=== PATIENT | male | born 1955 | race Caucasian/White ===

== ENCOUNTER 2017-09-25 00:18 | Outpatient (CLI) | payer BC, SELFPAY ==
--- NOTE | 2017-09-25 10:35 | DI.REPORT_ITS ---
SYMPTOM/DIAGNOSIS: RT SHOULDER PAIN, S46.011A, RT ROTATOR CUFF TEAR. MRI RIGHT SHOULDER: Routine noncontrast examination was performed. This study is limited due to patient positioning. The patient should return at their convenience and no additional expense for a repeat examination of the MRI of the right shoulder. There is a large tear of the supraspinatus tendon with retraction to the level of the glenohumeral joint. There also appears to be a partial tear of the infraspinatus tendon. The subscapularis and teres minor tendons are intact. The biceps tendon has a normal appearance and location. The glenoid labrum is unremarkable on this noncontrast examination. The rotator cuff muscles show normal signal and size. No significant muscular fatty atrophy is appreciated. There is normal marrow signal. No findings to suggest an occult fracture or avascular necrosis is identified. No evidence of a soft tissue mass is seen. No focal fluid collection is present. IMPRESSION: Complete tear of the supraspinatus tendon with retraction to the level of the glenohumeral joint. 2. Findings suggestive of a partial tear of the infraspinatus tendon
== END 2017-09-25 00:19 ==
PROVIDERS: PCP Family Medicine; Visit Provider Student in an Organized Health Care Education/Training Program
DX: M75.121 Complete rotator cuff tear or rupture of right shoulder, not specified as traumatic (principal); S46.011A Strain of muscle(s) and tendon(s) of the rotator cuff of right shoulder, initial encounter
CPT/HCPCS: 73221

== ENCOUNTER 2017-10-10 00:41 | Outpatient (CLI) | payer BC, SELFPAY ==
--- NOTE | 2017-10-10 08:35 | DI.REPORT_ITS ---
SYMPTOMS/DIAGNOSIS: F/U MRI 09/25/17, REPEAT EXAM, RT SHOULDER PAIN, ROTATOR CUFF TEAR, S46.O11A RIGHT SHOULDER MRI: Today's examination was obtained to complete examination attempted on 09/25/17 which had loss of signal over portions of the imaging field as a result of patient positioning. On today's examination there is note made of hypertrophic degenerative change of the acromioclavicular and glenohumeral joints. The glenoid labrum is effaced particularly anteriorly and inferiorly but also superiorly. There is distortion of the rotator cuff anatomy with an apparent large supraspinatus tendon tear but some intact fibers of supraspinatus appear to present anteriorly. Infraspinatus tendon also appears partially torn. There is a large bare area of the humeral head measuring up to about 2 cm in diameter on sagittal views. Subscapularis tendon shows abnormal signal but no gross tear or retraction. Teres major appears intact. Biceps anchor and tendon are poorly visualized, biceps tear not excluded and biceps tendon appears of markedly decreased diameter as visualized in the bicipital groove which may also indicate a tear. CONCLUSION: Distorted rotator cuff anatomy with splaying of torn supraspinatus and infraspinatus tendons with some intact portions of supraspinatus and infraspinatus tendons. The humeral head is approximated to the inferior aspect of the acromion. Significant degenerative change, labral abnormalities and possible biceps tendon tear are noted as described above.
== END 2017-10-10 00:42 ==
PROVIDERS: PCP Family Medicine; Visit Provider Student in an Organized Health Care Education/Training Program
DX: M25.511 Pain in right shoulder (principal); M75.81 Other shoulder lesions, right shoulder; M19.011 Primary osteoarthritis, right shoulder; M75.101 Unspecified rotator cuff tear or rupture of right shoulder, not specified as traumatic
CPT/HCPCS: 73221

== ENCOUNTER 2017-12-05 07:47 | Outpatient (CLI) | payer BC, SELFPAY ==
[2017-12-05 10:25] LABS: HCT 43.5 % (40.0-50.0); HGB 15.2 g/dL (13.5-17.5); Mean Corp. HGB Concentration 34.9 g/dL (32.0-36.0); Mean Corpuscular Hemoglobin 30.5 pg (27.0-33.0); Mean Corpuscular Volume 87.2 fL (80-95); Mean Platelet Volume 9.8 fL (8.0-11.0); Platelet Count 201 x1000/uL (130-400); RBC 4.99 m/cumm (4.50-6.00); RBC Distribution Width 12.3 % (11.8-14.1); White Blood Cell Count 7.51 k/cumm (4.4-10.8)
[2017-12-05 12:39] LABS: Anion Gap 11.2 mmol/L (3-11); BUN 13 mg/dL (7-18); CO2 27.8 mmol/L (21.0-32.0); CREATININE 0.88 mg/dL (0.70-1.30); Calcium 9.2 mg/dL (8.5-10.1); Chloride 103 mmol/L (98-107); Glucose 97 mg/dL (70-100); Potassium 3.7 mmol/L (3.5-5.1); Sodium 142 mmol/L (136-145)
--- NOTE | 2017-12-05 15:20 | W.PM.HP.N ---
PFSH Family History Mother Heart disease Father Arthritis Brother No problems noted. Sister No problems noted. Sister No problems noted. Other Hyperlipidemia Hypertension Obesity Medical History Allergic rhinitis Hyperlipidemia Hypertension Jaw fracture Osteoarthritis Right shoulder pain Subclinical hypothyroidism Social History marital status: lives independently: Yes Smoking/Tobacco Use Status: Never alcohol intake: current details: couple drinks/night substance use type: does not use Surgical History Appendectomy Colonoscopy - IV Sedation Vasectomy Meds Home Medications Medication Instructions Recorded Confirmed Type aspirin [Aspir 81] 81 mg PO HS tab-cap 04/26/12 12/05/17 History cetirizine 10 mg PO HS tab-cap 04/26/12 12/05/17 History grape seed extract 500 mg PO HS 12/05/17 12/05/17 History hydrochlorothiazide 12.5 mg PO HS 12/05/17 12/05/17 History levothyroxine 25 mcg PO HS 12/05/17 12/05/17 History rosuvastatin 10 mg PO HS 12/05/17 12/05/17 History Allergies Allergy/AdvReac Type Severity Reaction Status Date / Time enviromental allergies Allergy Mild runny nose Uncoded 12/05/17 08:57 Results Labs : 12/05/17 09:48 12/05/17 09:48 Laboratory Results - last 24 hr 12/05/17 12/05/17 12/05/17 09:48 09:48 09:48 WBC 7.51 RBC 4.99 Hgb 15.2 Hct 43.5 MCV 87.2 MCH 30.5 MCHC 34.9 RDW 12.3 Plt Count 201 MPV 9.8 Sodium 142 Potassium 3.7 Chloride 103 Carbon Dioxide 27.8 Anion Gap 11.2 H BUN 13 Creatinine 0.88 Estimated GFR/1.73 m2 >= 60.00 Glucose 97 Calcium 9.2 Patient ABO/Rh O Positive Antibody Screen Negative
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
== END 2017-12-05 08:07 ==
PROVIDERS: PCP Family Medicine; Visit Provider Student in an Organized Health Care Education/Training Program
DX: M25.552 Pain in left hip (principal); M16.12 Unilateral primary osteoarthritis, left hip; Z01.818 Encounter for other preprocedural examination
CPT/HCPCS: 80048; 85027; 86850; 86900; 86901

== ENCOUNTER 2017-12-05 10:26 | Outpatient (CLI) | payer BC, SELFPAY ==
--- NOTE | 2017-12-05 10:21 | DI.RAD_ITS ---
SYMPTOM/DIAGNOSIS: LT HIP PAIN LEFT HIP: An AP image includes the left hip and proximal and mid femur. Severe degenerative changes involving the hip are identified with joint space narrowing , sclerosis and periarticular hypertrophic spurring.
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
--- NOTE | 2017-12-05 14:24 | PDOC.CMPRO ---
- If Service Date Differs Date of service: 12/05/17 Time of Service: 14:24 Care Management Progress Note DSU requested CM meet with Man prior to his surgery next week. Man will be having a total left hip with Dr. Brady on 12/11/2017. He resides with his Caron in [facility]. Man reports that he has four steps, then a ramp, and an additional three steps to get into his home. There are two alternative entrances to his home but Man believes this will be the most feasable and safe while ambulating with a walker. Asher has a walker at home so will not be needing one on discharge. Man reports that his , Caron and adult son, Danilo, will be supporting him in his recovery. Man will transport via private vehicle with his , Caron or son, Danilo. CM will offer support to patient, family, and care team regarding discharge planning and disposition when patient comes to the MS floor following surgery.
--- NOTE | 2017-12-05 14:47 | CMPROGNOTE_ITS ---
- If Service Date Differs Date of service: 12/05/17 Time of Service: 14:24 Care Management Progress Note DSU requested CM meet with Man prior to his surgery next week. Man will be having a total left hip with Dr. Brady on 12/11/2017. He resides with his Caron in [facility]. Man reports that he has four steps, then a ramp , and an additional three steps to get into his home. There are two alternative entrances to his home but Man believes this will be the most feasable and safe while ambulating with a walker. Asher has a walker at home so will not be needing one on discharge. Man reports that his , Caron and adult son, Danilo, will be supporting him in his recovery. Man will transport via private vehicle with his , Caron or son, Danilo. CM will offer support to patient, family, and care team regarding discharge planning and disposition when patient comes to the MS floor following surgery.
== END 2017-12-05 10:46 ==
PROVIDERS: PCP Family Medicine; Visit Provider Physician Assistant
DX: M25.552 Pain in left hip (principal); M16.12 Unilateral primary osteoarthritis, left hip
CPT/HCPCS: 73501

== ENCOUNTER 2017-12-11 07:14 | Inpatient (IN) | payer BC, SELFPAY ==
[2017-12-05 09:00] VITALS: BP 162/73; PULSE 52; RESP 17; TEMP 37.1; O2SAT 96
--- NOTE | 2017-12-05 14:55 | PDOC.CMPRO ---
- If Service Date Differs Date of service: 12/05/17 Time of Service: 14:55 Care Management Progress Note DSU requested CM meet with Man prior to his surgery next week. Man will be having a total left hip with Dr. Brady on 12/11/2017. He resides with his Caron in [facility]. Man reports that he has four steps, then a ramp, and an additional three steps to get into his home. There are two alternative entrances to his home but Man believes this will be the most feasable and safe while ambulating with a walker. Asher has a walker at home so will not be needing one on discharge. Man reports that his , Caron and adult son, Danilo, will be supporting him in his recovery. Man will transport via private vehicle with his , Caron or son, Danilo. CM will offer support to patient, family, and care team regarding discharge planning and disposition when patient comes to the MS floor following surgery.
[2017-12-11] VITALS (16 sets, daily range): BP systolic 121–159; BP diastolic 57–98; PULSE 55–68; RESP 11–18; TEMP 36.3–37; O2SAT 93–96
[2017-12-11] MEDS: oxyCODONE-CR 10 MG TABCR PO (06:38)
[2017-12-11] MEDS: Celecoxib 200 MG CAP 400 MG PO (06:38)
[2017-12-11] MEDS: Acetaminophen 500 MG TAB 1000 MG PO ×2 (06:38→14:32)
[2017-12-11] MEDS: Lactated Ringers 1,000 ML 80 ML IV ×2 (06:40→09:12)
[2017-12-11] MEDS: Ketorolac 30 MG/ML VIAL (09:30)
[2017-12-11] MEDS: Bupivacaine 0.25% Pres-Free 30 ML VIAL (09:30)
--- NOTE | 2017-12-11 10:14 | DI.RAD_ITS ---
SYMPTOM/DIAGNOSIS: OA LT HIP, CHECK HARDWARE C-ARM LEFT HIP IN OR: Fluoroscopy Time: 30.6 seconds Fluoroscopy was provided in the OR for Dr. Brady. Hard copy images show placement of a left total hip prosthesis. Please see procedure note for details. PORTABLE AP PELVIS: The patient is status post placement of a left hip prosthesis. The components appear well aligned. There is a small amount of residual post surgical air in the soft tissues.
--- NOTE | 2017-12-11 14:28 | PT.INIE ---
Date of service: 12/11/17 Time of Service: 14:28 PT Notes Inpatient Physical Therapy Evaluation Date: 12/11/17 Referring Doctor: Kiko Brady PT Orders: PT CONSULT: s/p left anterior YEHUDA Precautions: WBAT L LE Patient Profile/Admitting Diagnosis: Pt is a 62yr old male s/p left anterior total hip arthroplasty by Dr. Brady 12/11/17 PMHX: osteoarthritis left hip, right rotator cuff repair, hypertension, hyperlipidemia, allergic rhinitis, jaw fracture, hypothyroidism, appendectomy, colonoscopy, vasectomy Social History/Home Situation: Lives with in a house, 4 steps with railing and ramp to enter, baseline mobility independent gait with no device, independent with ADLS Equipment Owned/DME: FWW Subjective: Pt lying on gurney bed, alert, agreeable to PT Consult. in room observing session. Pt states he wants to be able to go home today. Objective: General Observation: IV r UE, renee catheter Mental Status: A& O x3 Pain: no c/o pain Bed Mobility/Transfers: Supine-sit: independent Sit-stand: independent with FWW Stand-sit: independent Sit-supine: independent Gait: supervision with FWW [id number] WBAT L LE, step through gait pattern with good balance and stability with use of FWW. Stairs: pt verbally instructed in step sequence with railing. Pt states he has been practicing stair sequence at home prior to admission and feels comfortable with performing steps. Pt has handout in pre-op packet with instructions for stair training as well. Therex: Pt has issued home exercise program, initiated ankle pumps, quad sets and glute sets x 20 reps Balance: Static Sitting: normal Dynamic Sitting: normal Static Standing: fair Dynamic Standing: fair Special Tests: Mobility Limitations Standardized Measure [facility] AM-PAC 6 clicks Basic Mobility Inpatient Short Form: Raw Score: 18 Standardized Score: 43.63 CMS Score: 46.58% CMS Modifier: CK Informed Consent/Education: Patient instructed in purpose of PT consult and plan of care. Assessment: Pt is a 62yr old male s/p left anterior total hip arthroplasty by Dr. Brady 12/11/17 in setting of osteoarthritis left hip, right rotator cuff repair. Patient presents with the following impairment level findings: weakness left hip post operatively, decreased static and dynamic standing balance requiring use of FWW. Pt was able to perform transfers independently and gait with FWW with supervision only 100ft x2. He has 4 steps at home that he has practiced prior to surgery and was able to verbalize step sequence at time of evaluation. Pt wants to discharge to home today. Pt is stable to discharge from mobility perspective when medically cleared. If he is admitted overnight, will review stair training in am then discharge PT. Impairments are contributing to the following functional limitations: AMPAC score CMS Score: 46.58% Patient is assessed as a Low 68246 complexity based on the following: History: see above Examination: see above Presentation: stable Decision Making: AMPAC score CMS Score: 46.58% Goals: Goals X2 visits 1. up/down 4 steps with railing, WBAT supervision Plan of Care/Treatment Plan: 1-2x/day x 2 visits Plan of care has been reviewed with the VALVE LAPPER providing the service under Physical Therapy direction. Initiate Physical Therapy intervention for strengthening, bed mobility, transfers, gait, stairs, balance training, use of assistive device. DISCHARGE RECOMMENDATIONS: Home, pt has FWW TREATMENT CODE/TIME: 25 min IE 1425 G Codes in the area mobility of walking and moving around: current status [id number] []; projected status GP [id number]-[]. Discharge status (if discharging) GP [id number] CK based on AMPAC score CMS Score: 46.58% Cathleen Ramirez PT
--- NOTE | 2017-12-11 14:41 | IN_ITS ---
Date of service: 12/11/17 Time of Service: 14:28 PT Notes Inpatient Physical Therapy Evaluation Date: 12/11/17 Referring Doctor: Kiko Brady PT Orders: PT CONSULT: s/p left anterior YEHUDA Precautions: WBAT L LE Patient Profile/Admitting Diagnosis: Pt is a 62yr old male s/p left anterior total hip arthroplasty by Dr. Brady 12/11/17 PMHX: osteoarthritis left hip, right rotator cuff repair, hypertension, hyperlipidemia, allergic rhinitis, jaw fracture, hypothyroidism, appendectomy, colonoscopy, vasectomy Social History/Home Situation: Lives with in a house, 4 steps with railing and ramp to enter, baseline mobility independent gait with no device, independent with ADLS Equipment Owned/DME: FWW Subjective: Pt lying on gurney bed, alert, agreeable to PT Consult. in room observing session. Pt states he wants to be able to go home today. Objective: General Observation: IV r UE, renee catheter Mental Status: A& O x3 Pain: no c/o pain Bed Mobility/Transfers: Supine-sit: independent Sit-stand: independent with FWW Stand-sit: independent Sit-supine: independent Gait: supervision with FWW [id number] WBAT L LE, step through gait pattern with good balance and stability with use of FWW. Stairs: pt verbally instructed in step sequence with railing. Pt states he has been practicing stair sequence at home prior to admission and feels comfortable with performing steps. Pt has handout in pre-op packet with instructions for stair training as well. Therex: Pt has issued home exercise program, initiated ankle pumps, quad sets and glute sets x 20 reps Balance: Static Sitting: normal Dynamic Sitting: normal Static Standing: fair Dynamic Standing: fair Special Tests: Mobility Limitations Standardized Measure [facility] AM-PAC 6 clicks Basic Mobility Inpatient Short Form: Raw Score: 18 Standardized Score: 43.63 CMS Score: 46.58% CMS Modifier: CK Informed Consent/Education: Patient instructed in purpose of PT consult and plan of care. Assessment: Pt is a 62yr old male s/p left anterior total hip arthroplasty by Dr. Brady 12/11/17 in setting of osteoarthritis left hip, right rotator cuff repair. Patient presents with the following impairment level findings: weakness left hip post operatively, decreased static and dynamic standing balance requiring use of FWW. Pt was able to perform transfers independently and gait with FWW with supervision only 100ft x2. He has 4 steps at home that he has practiced prior to surgery and was able to verbalize step sequence at time of evaluation. Pt wants to discharge to home today. Pt is stable to discharge from mobility perspective when medically cleared. If he is admitted overnight, will review stair training in am then discharge PT. Impairments are contributing to the following functional limitations: AMPAC score CMS Score: 46.58% Patient is assessed as a Low 11447 complexity based on the following: History: see above Examination: see above Presentation: stable Decision Making: AMPAC score CMS Score: 46.58% Goals: Goals X2 visits 1. up/down 4 steps with railing, WBAT supervision Plan of Care/Treatment Plan: 1-2x/day x 2 visits Plan of care has been reviewed with the CRATE MAKER providing the service under Physical Therapy direction. Initiate Physical Therapy intervention for strengthening, bed mobility, transfers, gait, stairs, balance training, use of assistive device. DISCHARGE RECOMMENDATIONS: Home, pt has FWW TREATMENT CODE/TIME: 25 min IE 1425 G Codes in the area mobility of walking and moving around: current status [id number] []; projected status GP G8979-[]. Discharge status (if discharging) GP G8980 CK based on AMPAC score CMS Score: 46.58% Cathleen Ramirez PT
--- NOTE | 2017-12-11 15:38 | W.PM.DS.N ---
Date of service: 12/11/17 Time of Service: 15:39 DS: Diagnosis Discharge Diagnosis (1) Primary osteoarthritis of left hip: Status: Acute Discharge Plan Disposition Patient Disposition: HOME Condition: Good Discharge Details Reason For Visit: LEFT HIP DJD Admit Date/Time: 12/11/17 07:14 Admit Provider: Kiko Brady Attending Provider: Kiko Brady [facility] Hospital Course: Patient was admitted to the medical/surgical floor following the procedure. It was tolerated well without any notable medical, surgical, or anesthetic complications. Mobilization began postoperatively. The renee catheter was removed and voiding spontaneously. Vitals were stable. Physical therapy worked with the patient and was cleared for discharge home. No acute medical issues. Home Meds and New Rx's Prescriptions: New aspirin 81 mg Tablet,Delayed Release (Dr/Ec) 81 mg PO BID Qty: 80 RF: 0 docusate sodium [Colace] 100 mg Capsule 100 mg PO BID PRN PRN (Reason: Constipation) Qty: 0 RF: 0 polyethylene glycol 3350 17 gram Powder In Packet 17 g PO BID PRN PRN (Reason: Constipation) Qty: 0 RF: 0 pantoprazole 40 mg Tablet,Delayed Release (Dr/Ec) 40 mg PO DAILY@0730 Qty: 30 RF: 0 celecoxib 200 mg capsule 200 mg PO BID PRN (Reason: pain) Qty: 60 RF: 1 acetaminophen 500 mg capsule 1,000 mg PO Q8H PRN (Reason: pain) Qty: 90 RF: 0 oxycodone 5 mg tablet 5 mg PO Q4H Qty: 10 RF: 0 Continue aspirin [Aspir-81] 81 MG tablet,delayed release (DR/EC) 81 mg PO HS RF: 0 cetirizine 10 MG tablet,chewable 10 mg PO HS RF: 0 grape seed extract 50 mg Tablet 500 mg PO HS RF: 0 rosuvastatin 10 mg Tablet 10 mg PO HS RF: 0 Changed levothyroxine 25 MCG tablet 25 mcg PO DAILY Qty: 0 RF: 0 hydrochlorothiazide 12.5 mg tablet 12.5 mg PO DAILY Qty: 0 RF: 0 Discharge Instructions Additional Instructions: Dr. Brady?s Total Hip Discharge Instructions Activity: The most important activity is to walk. You should try to take short walks a few times a day. You have no restrictions on movement or positioning, but do not try to force what you do. You will find some stiffness and weakness with hip flexion (lifting your knee). Do not try to strengthen this too early, continue to practice walking and stairs and this will come. - Outpatient physical therapy can be helpful to help return you to a normal gait and improve your flexibility and strength. This can start around 2 weeks. For some patients, it?s not necessary. Usually this is determined at the time of discharge or at the first post-operative visit. - You should wear the DAMIÁN hose on both legs for 4 weeks. Dressing: Keep the surgical dressing in place for at least one week. After the first week it may be removed and replace with light gauze and tape or nothing. It may get wet after 3 days but avoid soaking the dressing. If it gets wet, just lightly pat dry. It is important to always keep some gauze between skin folds, especially when you are sitting. Spend some time with the wound exposed when you are lying flat as the incision does wrinkle onto itself. Medications: - You should take Tylenol and an anti-inflammatory Celebrex as your primary pain control medications - You have been prescribed a stronger pain medication oxycodone for breakthrough pain, take as needed as prescribed. - You have also been prescribed a stomach acid reduction agent Pantoprozole to help reduce stomach acid and reflux. - You will be taking aspirin 81mg twice a day for DVT prevention unless instructed otherwise. - If you have constipation you should take Colace or Miralax (both dxyi-bir-fokngna). It takes most people 3-4 days to have a bowel movement. Follow-up: 2 weeks Activity:: Activity as Tolerated Equipment/Supplies:: Walker Diet:: As Tolerated Discharge Orders Discharge Orders: Discharge Order (Routine); Ordered 12/11/17 Ordered By: Kiko Brady DS: Data Vitals/I&O Vitals and I&O: Vital Signs Temperature 36.4 C L 12/11/17 14:39 Pulse 61 12/11/17 14:39 Pulse Rhythm Regular 12/11/17 06:22 Respiratory Rate 15 12/11/17 14:39 Respiratory Effort 12/11/17 06:22 Respiratory Depth Normal 12/11/17 06:22 Respiratory Pattern Normal 10/23/18 06:22 Blood Pressure 135/98 H 12/11/17 14:39 Pulse Oximetry 94 L 12/11/17 14:39 Respiratory End-tidal CO2 27 12/11/17 10:33 Oxygen Delivery Method Room Air 12/11/17 14:39 Oxygen Flow Rate 0 12/11/17 06:22 Pain Level 0 12/11/17 14:39 Comment 12/11/17 06:22 Intake & Output 12/10/17 12/11/17 12/11/17 23:59 11:59 23:59 Intake Total 1370 / 1370 700 / 700 Output Total 550 / 550 1250 / 1250 Balance 820 / 820 -550 / -550 Weight 100 kg Intake: IV 1370 / 1370 700 / 700 Output: Urine 150 / 150 1250 / 1250 Estimated Blood Loss 400 / 400 Other: Urine Color Yellow Pale Yellow Urine Appearance Clear Clear Comment patient being discharged to home, verbal order to van renee was given to this nurse by Dr Brady. patient will wait to spontaneously void before leaving Emesis Description None None
--- NOTE | 2017-12-11 15:50 | W.PM.OP ---
Date of service: 12/11/17 Time of Service: 15:50 Operative Note DATE OF PROCEDURE: 12/11/17 PRE-OP DIAGNOSIS: Left Hip Osteoarthritis POST-OP DIAGNOSIS: same PROCEDURE: Left Anterior Total Hip Arthroplasty SURGEON: Kiko Brady PLANNING COORDINATOR: Michael Schuler ANESTHESIA: spinal ESTIMATED BLOOD LOSS: 400 PATHOLOGY: none sent COMPLICATIONS: None Patient was transported to: PACU Patient's condition: stable Implants: 1. Depuy Calamus Acetabular Component, 52 mm 2. Depuy Acetabular Liner, 52 x 36 mm, +4 lateralized 3. Depuy Corail coxa vara femoral Stem, Size 14 4. Depuy Altrx Ceramic Femoral Head, Size 36+1.5 mm Indications: I have seen Man in clinic for symptoms of hip arthritis, confirmed with radiographic findings. Brando has exhausted nonoperative methods and was having significant limitations in daily function and desired better function and less pain. I discussed the technical details of a hip replacement. I explained the risks of the procedure to include, but not limited to, bleeding, infection, pain, stiffness, fracture, damage to nerves and vessels, damage to muscles and tendons, loosening, instability, leg length inequality, need for repeat procedure, blood clot and cardiopulmonary demise. Despite these risks, Brando elected to proceed. Findings: There was significant signs of arthritis throughout the hip. There were large neck osteophytes and large floor osteophyte of the acetabulum. Inferior osteophytes of the acetabulum were removed. Procedure Description: Brando was greeted in the preoperative holding area where the correct side was identified and marked. The consent was reviewed with the patient and signed. The history and physical was updated. All questions were answered. Brando was taken back to the operating room. A spinal anesthestic was then administered. The patient was placed into the supine position on the operating room table. The patient was then positioned onto the ARCH table. Both feet were wrapped with Webrill cotton wrap along with Coban. The feet were placed in specialized boots for the ARCH table, well seated within the boot and secured. SCDs were applied. The patient was then slid down onto a peroneal post and the nonoperative leg was secured in a leg salmeron attached to the table. The operative side was placed into the ARCH table attachment and bed height and positioning was secured. A preoperative AP pelvis was obtained to serve as a reference for determining leg lengths. Prophylactic antibiotics in the form of cefazolin were administered. 1g of Tranxemic Acid was given intravenously within 30 minutes of incision. The left leg was then prepped with Chloraprep and draped in a standard fashion with a large shower-curtain type drape with Iodine impregnated skin protection. A timeout to confirm correct identity, side and site, procedure, allergies, anesthesia, and medical concerns was performed. An obliquely oriented incision was made starting lateral to the ASIS and running distal over the Tensor Fascia Aruna (TFL) muscle belly toward the fibular head, approximately 10cm. The skin and soft tissue was dissected sharply, through Maciel?s fascia, and to the fascia of the TFL. With the fascia and superior border of the IT band identified, the fascia was incised with a new knife just above any perforators from the IT band. The TFL muscle belly was bluntly dissected away from the fascia and moved laterally. The fat between TFL and rectus was identified to ensure the dissection was not within the TFL. Blunt dissection created space between abductors and the capsule and retractor was placed over the lateral femoral neck. The fibers of the rectus femoris tendon were identified and these were freed from the anterior capsule. A second cobra retractor was placed around the medial femoral neck. The TFL was further retracted laterally to show the deep fascia. Careful dissection through this layer identified three main crossing vessels of the lateral femoral circumflex. These were cauterized in multiple locations and then cut without any noticeable bleeding. The TFL was further released bluntly from the deep fascia to expose anterior hip capsule and fat the Chapo orthopaedic retractor was then placed beneath the TFL and against sartorius and medial soft tissues to protect and retract the soft tissues. A T-capsulotomy was then performed starting at the superior lateral acetabulum and moving distally to the intertrochanteric ridge. These capsular flaps were tagged with a No. 1 Ethibond and elevated from within. The capsular flaps were released to the shoulder of the lateral neck and to the lesser trochanter to give excellent visualization of the proximal femur. A neck osteotomy was performed using an oscillating saw based on preoperative templates. This cut started in the shoulder and of the lateral neck and exited medially. The saw was at all times directed medially to avoid injury to the greater trochanter. 6cm of traction was applied to the leg and the osteotomy opened. The femoral head was removed with a corkscrew, making sure to protect the TFL on its exit. This was measured on the back table to determing the starting reamer size. Portions of the rectus obscuring visualization were minimally elevated off the superior acetabulum. An anterior retractor was placed over the anterior wall between capsule and labrum. A posterior retractor was placed similarly. This provided excellent visualization. The contents of the cotyloid fossa were removed with electrocautery and the labrum was removed with a knife. There was a notable floor osteophyte. There was significant chondromalacia of the superior acetabulum. Acetabular reaming began with a 45 mm reamer. This first reaming was directed anterior to posterior and medial to get down to the true floor. This was inspected and reamed until the true floor was reached. I then reamed sequentially up to a 47 mm reamer where good fit was obtained. The larger reamers were oriented based on anatomical reference of the anterior and lateral gonzalez to ensure proper abduction and anteversion. Positioning and size was confirmed with the fluoroscopy. A 52 mm Depuy Calamus acetabular component was selected. The acetabulum was reamed around the periphery with the selected acetabular size to prevent a rim fit. The deep tissues were irrigated. The acetabular component was then impacted in a position of about 40-45 degrees of abduction and 15-20 degrees of anteversion, using the patient?s anatomy as the ultimate landmark. Fluoroscopy was used to confirm this. There was excellent observatory director of the acetabular component and the inserting handle was removed. The acetabular liner, Depuy 52 x 36 mm polyethylene liner, was inserted and lined up with the tines of the acetabular component. There was no soft tissue interposition. The liner was then impacted into position and confirmed to be well-seated. A portion of the rere-articular cocktail was then injected around the acetabulum into the capsule and periosteum. This cocktail consisted of 50cc of 0.25% Bupivicaine and 20cc of Exparel, expanded to a total of 120cc. Traction was released from the femur. The leg was rotated to 120 degrees. Any remaining medial capsule was released until the lesser trochanter was easily palpable. A Naik retractor was placed medially. The lateral capsule was further released into the shoulder to allow access to the greater trochanter. A Naik retractor was placed over the greater trochanter which allowed the trochanter to flip in front of the capsule for excellent exposure. The leg was brought down into maximal extension and 20 degrees of adduction while ensuring there was no impingement on the acetabulum. Any remnant capsule within the trochanter was released. Piriformis and obturator externis were identified and protected. There was excellent access to the proximal femur. The lateral neck remnant was removed with a rongeur. A blunt canal probe was used to identify the canal and trajectory for later broaching. A box osteotome initiated the broach course. A small curved rasp and a curved curette were used to work laterally. Broaching then began with a size 8 Corail broach. This was inserted manually around the trochanter and into the canal before mallet blows. The broach was seated to the neck cut level based on the neck cut and the preoperative template. Sequential broaching was continued until a tight fit was obtained with good rotational control of the femur. A trial coxa vara neck was inserted along with a +1.5 trial head. The leg was brought out of extension and adduction and then reduced with traction and internal rotation. The leg was stable anteriorly in a position of 30 degrees of extension and 90 degrees of external rotation. Fluoroscopy was used to ensure there was no fracture and the stem was seated well. Leg lengths were checked with an AP pelvis and pelvic reference points. Once content with the desired offset and leg lengths, the leg was brought back into extension, external rotation and adduction. The periosteum and surrounding tissue was injected with remaining portion of the rere-articular cocktail. The proximal femur was irrigated as well as the deep tissues. The Depuy Corail coxa vara stem, size 14, was then manually inserted into the proximal femur making sure to control rotation. It was then malleted into position with light blows, giving breaks to allow bone expansion and decrease risk of fracture. The selected Depuy Altrx Ceramic Head, size 36+1.5 mm, was then placed onto the clean and dry trunnion and secured with impaction onto the tapered fit. The leg was brought back out of extension and adduction and reduced with traction and internal rotation. Stability was confirmed with no shuck at 90 degrees of external rotation and 30 degrees of extension. No impingement through range of motion arc. Final x-ray images were obtained with fluoroscopy to confirm adequate positioning and no intraoperative fracture. The deep tissues were thoroughly irrigated with a pulse lavage. The second dose of TXA 1g was administered intravenously. The capsule was then reapproximated with the previously placed Ethibond sutures. The TFL fascia was finally closed with a No. 2 Stratafix, barbed suture. Deep tissues were then reapproximated with 0 Vicryl and a running 2-0 Vicryl. The skin was closed with a running 4-0 Monocryl in a subcuticular fashion. This was reinforced with skin glue. A Mepilex silver dressing was applied. At the end of the case, all counts were correct. Brando was transferred to the hospital bed without difficulty and suffering no apparent complication. Brando has a good prognosis. Physical therapy will start today and without restrictions, weight-bearing as tolerated. Aspirin 81mg BID will be used for DVT prophylaxis.
--- NOTE | 2017-12-12 08:55 | PT.DS ---
Date of service: 12/12/17 Time of Service: 08:55 PT Notes PHYSICAL THERAPY DISCHARGE NOTE Dates or service: 12/11/17 Pt was seen for PT Consult only then discharged to home setting, discharge PT services. G Codes in the area mobility of walking and moving around: current status [id number] CK; projected status GP [id number]. Discharge status (if discharging) GP [id number] CK Cathleen Ramirez PT
== END 2017-12-11 18:49 | disposition home or self-care (01) | DRG 470 ==
LOC: MS 14:57
PROVIDERS: Admitting Provider Student in an Organized Health Care Education/Training Program; PCP Family Medicine; Visit Provider Student in an Organized Health Care Education/Training Program
PROC: 0SRB04A Replacement of Left Hip Joint with Ceramic on Polyethylene Synthetic Substitute, Uncemented, Open Approach (ICD-10-PCS; CPT 27130; principal; 2017-12-11 07:30)
DX: M16.12 Unilateral primary osteoarthritis, left hip (principal); Z96.642 Presence of left artificial hip joint; I10 Essential (primary) hypertension
CPT/HCPCS: 27130; 97161; NC; 72170; 73501; J0690; J1100; J1885; J2250; J2405

== ENCOUNTER 2017-12-26 11:35 | Outpatient (CLI) | payer BC, SELFPAY ==
--- NOTE | 2017-12-26 11:27 | DI.RAD_ITS ---
SYMPTOMS/DIAGNOSIS: S/P LT YEHUDA LEFT HIP AND PELVIS: The patient is status post YEHUDA. The prosthesis in excellent position and surrounding bone intact with no evident interval change when compared with prior images.
== END 2017-12-26 11:55 ==
PROVIDERS: PCP Family Medicine; Visit Provider Student in an Organized Health Care Education/Training Program
DX: Z96.642 Presence of left artificial hip joint (principal); Z47.1 Aftercare following joint replacement surgery
CPT/HCPCS: 73502

== ENCOUNTER 2018-03-26 08:03 | Day surgery (SDC) | payer BC, SELFPAY ==
[2018-03-26] VITALS (7 sets, daily range): BP systolic 120–148; BP diastolic 58–84; PULSE 58–63; RESP 12–22; TEMP 35.4–37.1; O2SAT 95–97
--- NOTE | 2018-03-26 07:02 | W.PREOPHP ---
Date of service: 03/26/18 Time of Service: 09:02 Assessment and Plan (1) Tear of right rotator cuff: Current visit: No Status: Acute Brando is a 63-year-old who has a complete rotator cuff tear. He is tried conservative treatment options. He continues have pain and weakness. He has successfully recovered from his hip replacement now with a focus in the right shoulder. I reviewed the technical details of rotator cuff repair. I reviewed the risks include bleeding, infection, pain, stiffness, damage to nerves and vessels, damage to muscle tendons, re-tear, persistent weakness, blood clot. Despite these risks, he elects to proceed. Qualifiers: Rotator cuff tear extent: unspecified tear extent Qualified Code(s): M75.101 - Unspecified rotator cuff tear or rupture of right shoulder, not specified as traumatic History of Present Illness Chief Complaint: Right Shoulder Pain and Weakness Narrative: Brando is a 63-year-old who has had some persistent right shoulder pain and weakness. He has had this for many years. Previous MRI showed a full-thickness rotator cuff tear. He has been able to manage but continues to have limitations on a day-to-day basis. The pain is primarily over the lateral aspect of the shoulder. He also has some anterior pain. He also notes weakness to try and use the arm away from his body. He denies numbness or tingling. He successfully recovered from his hip replacement and is now wanting to focus on the shoulder. 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) Tear of right rotator cuff (Acute 09/10/17) Subclinical hypothyroidism (Chronic 05/12/13) Primary osteoarthritis of left hip (Resolved 09/10/17) Other and unspecified hyperlipidemia (Chronic 04/10/11) Osteoarthritis (Resolved 12/26/16) Essential (primary) hypertension (Chronic 07/14/14) Chronic rhinitis (Chronic 04/10/11) Abnormal fasting glucose (Chronic 12/26/16) Allergic rhinitis (Chronic) Hyperlipidemia (Chronic) Hypertension (Chronic) Osteoarthritis (Chronic) Right shoulder pain (Chronic) Subclinical hypothyroidism (Chronic) Jaw fracture (Resolved) Surgical History Appendectomy (Resolved) Colonoscopy - IV Sedation (Resolved) Vasectomy (Resolved) Family History Mother Heart disease Father Arthritis Brother No problems noted. Sister No problems noted. Sister No problems noted. Other Hyperlipidemia Hypertension Obesity Social History household members: spouse lives independently: Yes number of children: 2 current occupational status: employed current occupation: [employer] Smoking/Tobacco Use Status: Never alcohol intake: current details: couple drinks/night substance use type: does not use Meds Home Medications Medication Instructions Recorded Confirmed Type cetirizine 10 mg PO HS tab-cap 04/26/12 03/25/18 History grape seed extract 500 mg PO HS 12/05/17 03/25/18 History rosuvastatin 10 mg PO HS 12/05/17 03/25/18 History hydrochlorothiazide 25 mg tablet 25 mg PO DAILY #90 tab 12/25/17 03/25/18 Rx varicella-zoster glycoE [id number] 50 mcg IM ONCE #1 each 12/25/17 01/23/18 Rx adj(PF) 50 mcg/0.5 mL IM susp, kit varicella-zoster glycoE [id number] 50 mcg IM ONCE #1 each 12/25/17 01/23/18 Rx adj(PF) 50 mcg/0.5 mL IM susp, kit levothyroxine 25 mcg tablet 25 mcg PO DAILY #90 tab 01/17/18 03/25/18 Rx aspirin 81 mg chewable tablet 81 mg PO DAILY 01/23/18 03/25/18 History acetaminophen 1,000 mg PO Q8H PRN #90 cap 03/26/18 Rx celecoxib 200 mg PO BID PRN #60 cap 03/26/18 Rx oxycodone 5 mg PO Q4H #12 tab 03/26/18 Rx Allergies Allergy/AdvReac Type Severity Reaction Status Date / Time enviromental allergies Allergy Mild runny nose Uncoded 03/26/18 08:15 Exam Const General: cooperative, healthy appearing, comfortable and no acute distress Nutritional Appearance: average body habitus Orientation: alert, awake and oriented x3 HENMT Head: normal to inspection Neck Neck: normal visual inspection Resp Effort & Inspection: normal respiratory effort Auscultation: clear to auscultation bilaterally Cardio Rate: regular rate Rhythm: regular rhythm Extrem Right upper extremity: normal to inspection, normal capillary refill and shoulder/upper arm Details: normal to inspection, axillary nerve sensory function normal, abnormal ROM Details: pain with active ROM Details: in ABduction and in flexion; no pain with passive ROM and other (Weakness to abduction and external rotation); no ecchymosis, no crepitus and no deformity Other: Normal sensation to light touch No web space cracks or splits noted left hip exam shows the patient flexion intact to about 8085 degrees with the patient going into an external rotation contracture. His internal rotation is extremely limited with pain. He has no trochanteric bursa tenderness. Results Imaging Imaging Studies: MRI of R shoulder with complete rotator cuff tear of the supraspinatus and part of the infraspinatus with labral and biceps tearing.
--- NOTE | 2018-03-26 07:39 | W.PM.DSUDISC ---
Discharge Plan Disposition Patient Disposition: HOME Condition: Good Discharge Details Reason For Visit: R RTC Repair Attending Provider: Kiko Brady Primary Care Provider: Nadir Rossi Home Meds and New Rx's Prescriptions: New celecoxib 200 mg capsule 200 mg PO BID PRN (Reason: pain) Qty: 60 RF: 1 acetaminophen 500 mg capsule 1,000 mg PO Q8H PRN (Reason: pain) Qty: 90 RF: 0 oxycodone 5 mg tablet 5 mg PO Q4H Qty: 12 RF: 0 Continued hydrochlorothiazide 25 mg tablet 25 mg PO DAILY Qty: 90 RF: 3 Shingrix (PF) 50 mcg/0.5 mL suspension for reconstitution 50 mcg IM ONCE Qty: 1 RF: 1 Shingrix (PF) 50 mcg/0.5 mL suspension for reconstitution 50 mcg IM ONCE Qty: 1 RF: 1 aspirin 81 mg tablet,chewable 81 mg PO DAILY RF: 0 cetirizine 10 MG tablet,chewable 10 mg PO HS RF: 0 levothyroxine 25 mcg tablet 25 mcg PO DAILY Qty: 90 RF: 3 grape seed extract 50 mg Tablet 500 mg PO HS RF: 0 rosuvastatin 10 mg Tablet 10 mg PO HS RF: 0 Discharge Instructions Stand Alone Forms: Caitlyn turcios/RCR Referrals: Kiko Brady MD [ [facility] STAFF PHYSICIAN] - Equipment/Supplies: Sling Activity:: Stay in sling except for hygiene and pendulums Remove Dressings/Wound Care:: 72 hours Shower/Bathe:: 72 hours Diet:: As Tolerated Discharge Orders Discharge Orders: Discharge Order (Routine); Ordered 03/26/18 Ordered By: Kiko Brady DS: Diagnosis Discharge Diagnosis (1) Tear of right rotator cuff: Status: Acute
[2018-03-26] MEDS: Lactated Ringers 1,000 ML 80 ML IV ×2 (08:29→12:04)
[2018-03-26] MEDS: Bupivacaine 0.5% Pres-Free 30 ML VIAL (09:31)
[2018-03-26] MEDS: Bupivacaine LIPOSOME/PF 133 MG/10 ML VIAL IJ (09:31)
--- NOTE | 2018-03-27 11:42 | ROE_ITS ---
Date of service: 03/26/18 Time of Service: 11:33 Operative Note DATE OF PROCEDURE: 03/26/18 PRE-OP DIAGNOSIS: Right rotator cuff tear POST-OP DIAGNOSIS: same PROCEDURE: - Arthroscopic Rotator Cuff Repair - Subacromial Debridement with Acromioplasty SURGEON: Kiko Brady BENEFITS SPECIALIST: Rubi Shaw ANESTHESIA: GETA and regional ESTIMATED BLOOD LOSS: 20 PATHOLOGY: none sent COMPLICATIONS: None Patient was transported to: PACU Patient's condition: stable Indications: I have seen Man in clinic for a painful shoulder. Pathology was confirmed based on MRI and exam findings. Nonoperative measures were exhausted but disability and pain persisted. I discussed shoulder arthroscopy and procedures. I reviewed the risks of the procedures to include, but not limited to, bleeding, infection, pain, stiffness, damage to nerves or vessels, recurrence, hardware failure, blood clot. Despite these risks, the patient elected to proceed. Findings: A diagnostic arthroscopy was performed with the following findings: - Glenohumeral Joint: No significant arthritic changes, significant inflammatory disease - Labrum: Type I fraying seen along the labrum but no complete detachment of the labrum anteriorly, posteriorly, or superior - Cuff: Complete tearing of the upper portion of subscapularis, complete tearing of all the supra spinatus and a portion of infraspinatus - Biceps: Complete tearing of the biceps tendon and fraying of the anchor - Subacromial: Large bursitis and amount of inflammatory tissue seen with small anterolateral spur Procedure Description: Brando was greeted in the preoperative holding area where the correct side was identified and marked. The consent was reviewed with the patient and signed. The history and physical was updated. All questions were answered. Brando was taken back to the PACU for administration of an intrascalene nerve block. He was then taken to the operating room. The patient was placed into the supine position on the operating room table. A general anesthetic was administered. He was then positioned in the beach chair position. All bony prominences were well padded. The head was placed in a foam head of sales and marketing in a neutral position. Prophylactic antibiotics in the form of cefazolin were administered. The right arm/shoulder was then prepped with Chloraprep and draped in a standard fashion with stockinette and shoulder drape. A timeout to confirm correct identity, side and site, procedure, allergies, anesthesia, and medical concerns was performed. The arm was placed into a pneumatic salmeron, SPIDER2. The shoulder arthroscopy was then performed. The glenohumeral joint was injected with 20 cc of normal saline with good flow back. A standard posterior portal was made and the joint was entered atraumatically with a blunt arthroscope. Once inside we had good visualization of the structures of the glenohumeral joint. An anterior portal was established with spinal needle localization. A 6.5 mm cannula was inserted. A probe was then used to perform a diagnostic arthroscopy. There is noted to be no significant cartilage damage of the glenoid humeral joint. The labrum was intact but showed significant fraying throughout from anterior to posteriorly including the superior labrum. There were no loose bodies in the inferior pouch. The superior rotator cuff was completely torn and retracted to the level of the glenoid. The infra spinatus was attached but only partially. The biceps tendon was not present and appeared to have previously been torn with significant inflammatory and fraying changes around the coracohumeral ligament and the biceps insertion. The subscapularis intact inferiorly but showed complete detachment of the upper portion of subscapularis tendon except for one small strand of tendon along with medialization of the coracohumeral ligament. Extensive debridement was then performed of the rotator interval as well as the labrum from anterior to posteriorly including the superior labrum. An anterolateral portal was then made with spinal needle localization. A 7.5 mm cannulas placed in this portal. This was used to help identify the subscapularis. I also use a 70 degrees scope to also evaluate the subscapularis. There was one band superiorly which seemed to be attached to a larger tendinous portion which was medially retracted. I was able to mobilize this tendon down to the footprint and see the exposed areas of the lesser tuberosity. I used a shaver from the anterior portal to decorticate and promote bleeding of the lesser tuberosity. A single Mitec Healix anchor was placed in this area. 2 horizontal mattress sutures were then placed within the bulk of the subscapularis tendon. This was able to draw the tendon back down to bone. It was stable to 30 degrees after I tied in using standard arthroscopic tying techniques. The arthroscope was then inserted into the subacromial space. The 6.5 mm cannula was placed lateral to the CA ligament. A secondary posterior lateral portal was then made for viewing. A complete bursectomy is performed anteriorly, posteriorly, and laterally with electrocautery and shaver. This had excellent exposure of the rotator cuff and the tuberosity which showed a retracted tear. The area of the biceps tendon was completely denuded of any tissue. The repaired subscapularis was visible anteriorly through the subacromial space. The tear of the rotator, seem to be like a reverse L tear with the father retracted supraspinatus and a less retracted posterior supra spinatus and infraspinatus tendon. Infra spinatus had a lamination. There was a small anterolateral spur. Then placed 2 Mitek Healix anchors along the medial border of the tuberosity right at the articular margin. Prior to placing these I had used a shaver to decorticate the greater tuberosity promote bleeding in this area. Prior to p roceed with repair I used a tissue liberator and electrocautery to free any adhesions of the superior rotator cuff to the underlying labrum, glenoid, and the overlying acromion. I was able to mobilize the rotator cuff tendon with quite ease to the medial aspect of the tuberosity. I then placed 4 horizontal mattress sutures which reapproximated the tendon down to bone. There was a notable defect in the area of the biceps tendon. The coracohumeral ligament was torn it was difficult to easily reapproximate to the anterior edge of the supraspinatus. These 4 sutures were tied from posterior to anterior and this reapproximated the tendon down to the tuberosity surface. There is no joint visible from this location. They were tied with minimal tension. The sutures were then cut. A 5.0 mm norma was then inserted from the posterior portal. The anterolateral corner of the acromion was then resected in plane with the posterior slope of the acromion. The scope equipment was removed from the shoulder. Excess fluid was evacuated. The portal sites were closed with 3-0 Monocryl. The wounds were dressed with Steri-Strips, 4 x 4's, ABDs, Medipore tape. A sling was applied. The patient tolerated the procedure well and was returned to the Same Day Surgery area in a stable condition suffering no known complication.
== END 2018-03-26 14:55 | disposition home or self-care (01) ==
LOC: SUR 08:04
PROVIDERS: PCP Family Medicine; Visit Provider Student in an Organized Health Care Education/Training Program
PROC: (CPT 29827; principal; 2018-03-26 09:15)
DX: M75.121 Complete rotator cuff tear or rupture of right shoulder, not specified as traumatic (principal); M24.811 Other specific joint derangements of right shoulder, not elsewhere classified; M75.51 Bursitis of right shoulder; S43.431A Superior glenoid labrum lesion of right shoulder, initial encounter; X58.XXXA Exposure to other specified factors, initial encounter; G89.18 Other acute postprocedural pain; M25.511 Pain in right shoulder
CPT/HCPCS: 29827; 29826; 76942; NC; J0690; J1100; J1885; J2250; J2370; J2405; L3670

== ENCOUNTER 2018-09-18 10:11 | Outpatient (CLI) | payer BC, SELFPAY ==
--- NOTE | 2018-09-18 08:28 | DI.RAD_ITS ---
SYMPTOMS/DIAGNOSIS: WEAKNESS RT ARM RIGHT HUMERUS: The humerus appears intact with note made of degenerative changes involving the right shoulder. RIGHT ELBOW: The bony structures are normally mineralized. There are minimal degenerative changes. There is no evidence of a joint effusion and the study is otherwise unremarkable.
== END 2018-09-18 10:31 ==
PROVIDERS: PCP Family Medicine; Visit Provider Physician Assistant
DX: R29.898 Other symptoms and signs involving the musculoskeletal system (principal); M19.011 Primary osteoarthritis, right shoulder; M19.021 Primary osteoarthritis, right elbow
CPT/HCPCS: 73060; 73080

== ENCOUNTER 2018-10-08 06:16 | Day surgery (SDC) | payer BC, SELFPAY ==
[2018-10-08 06:38] VITALS: BP 124/80; PULSE 62; RESP 18; TEMP 36.2; O2SAT 94
--- NOTE | 2018-10-08 07:05 | PDOC.DSDIS_ITS ---
Discharge Plan Disposition Patient Disposition: HOME Condition: Good Discharge Details Reason For Visit: Right Trigger Thumb Attending Provider: Kiko Brady Primary Care Provider: Nadir Rossi Home Meds and New Rx's Prescriptions: Continued lisinopril 10 mg tablet 10 mg PO DAILY Qty: 90 RF: 3 polyethylene glycol 3350 17 gram/dose powder 238 g PO ONCE Qty: 238 RF: 0 bisacodyl [Dulcolax (bisacodyl)] 5 mg tablet,delayed release (DR/EC) 5 mg PO ONCE Qty: 4 RF: 0 hydrochlorothiazide 25 mg tablet 25 mg PO DAILY Qty: 90 RF: 3 Shingrix (PF) 50 mcg/0.5 mL suspension for reconstitution 50 mcg IM ONCE Qty: 1 RF: 1 fortifeye PO RF: 0 aspirin 81 mg tablet,chewable 81 mg PO DAILY RF: 0 cetirizine 10 MG tablet,chewable 10 mg PO HS RF: 0 levothyroxine 25 mcg tablet 25 mcg PO DAILY Qty: 90 RF: 3 rosuvastatin 10 mg tablet 10 mg PO HS Qty: 90 RF: 3 grape seed extract 50 mg Tablet 500 mg PO HS RF: 0 Discharge Instructions Stand Alone Forms: Caitlyn You Finger Release Referrals: Kiko Brady MD [ [facility] STAFF PHYSICIAN] - Activity:: Activity as Tolerated Remove Dressings/Wound Care:: 48 hours Shower/Bathe:: 48 hours Diet:: As Tolerated Discharge Orders Discharge Orders: Discharge Order (Routine); Ordered 10/08/18 Ordered By: Kiko Brady DS: Diagnosis Discharge Diagnosis (1) Trigger thumb of right hand: Status: Acute
[2018-10-08] MEDS: Lidocaine 1% Multi-Dose 50 ML VIAL (07:35)
[2018-10-08] MEDS: Sodium Bicarbonate 50 MEQ/50 ML VIAL (07:35)
--- NOTE | 2018-10-08 07:56 | W.PM.OP ---
Date of service: 10/08/18 Time of Service: 07:56 Operative Note DATE OF PROCEDURE: 10/08/18 PRE-OP DIAGNOSIS: Trigger Finger -right thumb POST-OP DIAGNOSIS: same PROCEDURE: Trigger Finger Release -right thumb SURGEON: Kiko Brady ANESTHESIA: local ESTIMATED BLOOD LOSS: 0 PATHOLOGY: none sent COMPLICATIONS: None Patient was transported to: same day Patient's condition: stable Indications: I have seen Brando in clinic for symptoms of a trigger finger. The catching, clicking, locking, and pain limited function. The diagnosis of trigger finger was evident. The symptoms had not responded to conservative measures. I discussed trigger finger release with the patient. I reviewed the risks of the procedure to include, but not limited to, bleeding, infection, pain, stiffness, incomplete release, damage to nerves or vessels, continued catching, recurrence. Despite these risks, the patient elected to proceed. Findings: There was a tightened A1 theresa which was released. The flexor tendons were inspected and the patient was able to move the finger without any catching, clicking, or locking. Procedure Description: Brando was greeted in the preoperative holding area where the correct side was identified and marked. The consent was reviewed with the patient and signed. All questions were answered. Brando was taken back to the operating room. The patient was placed into the supine position on the operating room table with the right arm on an arm board. All bony prominences were well padded. No prophylactic antibiotics were administered since this was a clean, elective hand surgical case. The right arm was then prepped with Chloraprep and draped in a standard fashion with stockinette and extremity drape. A timeout to confirm correct identity, side and site, procedure, allergies, anesthesia, and medical concerns was performed. The surgical site was marked as a transverse incision directly over the A1 theresa of the involved digit. This was confirmed with palpation during finger flexion. This area, overlying the metacarpal head, was then anesthetized with 1% Lidocaine. The patient tolerated this well and once the anesthetic had setup, the procedure began. A longitudinal incision was made through skin only, approximately 1cm. The deep tissues were dissected bluntly. Once the A1 theresa and flexor tendons were identified the soft tissue including neurovascular structures were retracted medially and laterally. There were no crossing structures over the A1 theresa. The proximal edge of the theresa was identified and the theresa was incised with tenotomy scissors. There was a release of the tendons once this was fully released. The tendons were then removed from the wound and inspected. Excess synovium was resected. The tendons were then returned and the patient was asked to move the finger into deep flexion and back to extension. There was no recreation of the pre-operative symptoms. The hand was then once more inspected for any A0 theresa or area of possible constriction. The wound was then irrigated and the skin was closed with a 4-0 Nylon. This was dressed with gauze and a Conform dressing. The patient tolerated the procedure well and was returned to the Same Day Surgery area in a stable condition suffering no known complication.
== END 2018-10-08 08:10 | disposition home or self-care (01) ==
PROVIDERS: PCP Family Medicine; Visit Provider Student in an Organized Health Care Education/Training Program
PROC: (CPT 26055; principal; 2018-10-08 07:30)
DX: M65.311 Trigger thumb, right thumb (principal)
CPT/HCPCS: 26055

== ENCOUNTER 2018-10-11 08:24 | Day surgery (SDC) | payer BC, SELFPAY ==
[2018-10-11 08:42] VITALS: BP 129/71; PULSE 68; RESP 16; TEMP 36.4; O2SAT 97
[2018-10-11] MEDS: Lactated Ringers 1,000 ML 80 ML IV (08:57)
--- NOTE | 2018-10-11 10:00 | BOWEL_PTH ---
PATIENT: Man Castillo LOC: [facility] U#:[id number] AGE/SX: 63/M ROOM: RE10/11/[address]: Mary Jo Polanco MD : [id number] BED: DIS: 10/11/2018 SPEC #: [id number] RECD: 10/11/18 13:03 STATUS: LAURA REQ #: [id number] CHANELL: 10/11/18 10:[address]: Mary Jo Polanco DEPT: Surgical Specimen RECD BY: Lenore Guerra ENTERED: 10/11/18 13:04 SP TYPE: Bowel OTHR DR: Nadir Rossi DO Tissues: 1 - BIOPSY BOWEL Procedures: GROSS AND MICRO LEVEL 4 Comments: [id number]
--- NOTE | 2018-10-11 10:24 | W.PM.DSUDISC ---
Discharge Plan Disposition Patient Disposition: HOME Condition: Good Discharge Details Reason For Visit: Colonoscopy Attending Provider: Mary Jo Polanco Primary Care Provider: Nadir Rossi Home Meds and New Rx's Prescriptions: Continued lisinopril 10 mg tablet 10 mg PO DAILY Qty: 90 RF: 3 hydrochlorothiazide 25 mg tablet 25 mg PO DAILY Qty: 90 RF: 3 Shingrix (PF) 50 mcg/0.5 mL suspension for reconstitution 50 mcg IM ONCE Qty: 1 RF: 1 fortifeye PO RF: 0 aspirin 81 mg tablet,chewable 81 mg PO DAILY RF: 0 cetirizine 10 MG tablet,chewable 10 mg PO HS RF: 0 levothyroxine 25 mcg tablet 25 mcg PO DAILY Qty: 90 RF: 3 rosuvastatin 10 mg tablet 10 mg PO HS Qty: 90 RF: 3 grape seed extract 50 mg Tablet 500 mg PO HS RF: 0 Discontinued polyethylene glycol 3350 17 gram/dose powder 238 g PO ONCE Qty: 238 RF: 0 bisacodyl [Dulcolax (bisacodyl)] 5 mg tablet,delayed release (DR/EC) 5 mg PO ONCE Qty: 4 RF: 0 Discharge Instructions Additional Instructions: Findings: Diverticulosis was present. A possible polyp was also biopsied Follow up: If the biopsies confirm a polyp, a colonoscopy will be needed in 5 years Please call if you develop: fevers >101.5 Nausea or Vomiting Abdominal pain that is not transient DAY SURGERY UNIT POST COLONOSCOPY INSTRUCTIONS 1. Because there will be medication in your system for the next 24 hours, you may feel a little sleepy. Your coordination will be affected. Therefore: a. Do not drive or operate dangerous equipment for 24 hours. b. Do not drink alcohol beverages for 24 hours (not even beer). c. Plan to go home and rest for the day. 2. Generally there are no restrictions on your activity after a day or so has gone by, but you may feel a bit fatigued for a few days. 3 After you arrive home you may have a light meal and return to a normal diet as you can tolerate it without feeling sick to your stomach. 4. After surgery, you may feel pain or discomfort. This should be only transient, but if it persists please contact your doctor. 5. If there are any questions regarding the findings of your procedure, please feel free to contact your doctor. 6. If you are unable to contact your doctor with a problem, contact the hospital at [phone]. 2. Continue all your regular medications unless directed otherwise. I understand the above instructions and have no questions. Signature of Patient or Responsible Adult Escort Date/Time Name of Responsible Adult Escort Signature of Nurse Date/Time Activity:: Activity as Tolerated Diet:: As Tolerated Discharge Orders Discharge Orders: Discharge Order (Routine); Ordered 10/11/18 Ordered By: Mary Jo Polanco DS: Diagnosis Discharge Diagnosis (1) Diverticulosis: Status: Acute (2) Colon polyp: Status: Acute (3) S/P colonoscopy:
[2018-10-11 10:42] VITALS: BP 110/67; PULSE 53; RESP 16; TEMP 36.2; O2SAT 97
--- NOTE | 2018-10-11 11:13 | COLE_ITS ---
REPORT OF OPERATIVE PROCEDURE DATE OF PROCEDURE October 11, 2018 PREOPERATIVE DIAGNOSIS Screening. POSTOPERATIVE DIAGNOSES 1. Possible descending colon polyp. 2. Diverticulosis. PROCEDURES Colonoscopy with biopsy. SURGEON Mary Jo Polanco M.D. ANESTHESIA Monitored Anesthesia Care. INDICATIONS This is a 63-year-old man who presents for routine colon evaluation. His last colonoscopy in 2005 was normal. He is asymptomatic and has no family history of colon cancer. PROCEDURE DESCRIPTION The patient was placed in the left Chicas position. Propofol was titrated to sedation. Digital rectal e xamination revealed no abnormities. The scope was advanced to the cecum without difficulty. The ileoc ecal valve and appendiceal orifice were clearly identified. The scope was slowly withdrawn with no ab normalities see within the ascending or transverse colon. In the descending colon, there was a sligh tly more prominent area of mucosa, which also did not quite appear to be a polyp. This may have been an inverted diverticulum. This area was biopsied x2 with the cold forceps. The patient was noted to have mild to moderate sigmoid diverticulosis. The rectum was normal, including on retroflexed view. He tolerated the procedure well and was stable to Recovery. If the biopsy showed adenomatous polyp, he will need a followup colonoscopy again in five years. CC: Nadir Rossi D.O.
== END 2018-10-11 10:58 | disposition home or self-care (01) ==
PROVIDERS: PCP Family Medicine; Visit Provider Surgery
PROC: 0DJD8ZZ Inspection of Lower Intestinal Tract, Via Natural or Artificial Opening Endoscopic (ICD-10-PCS; CPT 45378; principal; 2018-10-11 09:45)
DX: Z12.11 Encounter for screening for malignant neoplasm of colon (principal); K63.5 Polyp of colon; I10 Essential (primary) hypertension; E03.9 Hypothyroidism, unspecified; K57.30 Diverticulosis of large intestine without perforation or abscess without bleeding
CPT/HCPCS: 45380; 88305; J2250; J3010

== ENCOUNTER 2018-12-12 09:30 | Outpatient (CLI) | payer BC, SELFPAY ==
--- NOTE | 2018-12-12 07:58 | DI.RAD_ITS ---
EXAM: XR HIP LT AP LAT ONLY INDICATION: 1 yr status post. COMPARISON: XR hip LT complete AP pelvis from 12/26/2017 TECHNIQUE: 2D digital imaging was performed. FINDINGS: The patient is status post left YEHUDA. A prosthesis is noted in excellent position, unchanged when comp ared with a prior examination of 12/26/2017.
--- NOTE | 2018-12-12 08:12 | DI.RAD_ITS ---
EXAM: XR HEEL RT OS CALCIS INDICATION: right foot pain. COMPARISON: No exams were available for comparison TECHNIQUE: 2D digital imaging was performed. FINDINGS: The bony structures are normally mineralized. Joint spaces intact. There is a tiny calcaneal spur. There is no evidence of a fracture or dislocation.
== END 2018-12-12 09:50 ==
PROVIDERS: PCP Family Medicine; Visit Provider Physician Assistant
DX: M77.31 Calcaneal spur, right foot (principal); M79.671 Pain in right foot; Z96.642 Presence of left artificial hip joint
CPT/HCPCS: 73502; 73650

== ENCOUNTER 2019-08-05 18:18 | Outpatient (REF) | payer BC, SELFPAY ==
[2019-08-05 19:01] LABS: ALT 52 U/L (16-63); AST 30 U/L (15-37); Albumin 4.2 g/dL (3.4-5.0); Alkaline Phosphatase 102 U/L (46-116); Anion Gap 10.7 mmol/L (3-11); BUN 14 mg/dL (7-18); Bilirubin, Total 0.4 mg/dL (0.2-1.0); CO2 26.3 mmol/L (21.0-32.0); Chloride 102 mmol/L (98-107); Glucose 109 mg/dL (74-106); Potassium 3.9 mmol/L (3.5-5.1); Sodium 139 mmol/L (136-145); TSH (W/Ref FT4) 2.73 uIU/mL (0.36-3.74); Total Protein 7.1 g/dL (6.4-8.2)
== END 2019-08-05 18:38 ==
LOC: LBN 18:18
PROVIDERS: PCP Family Medicine; Visit Provider Family Medicine
DX: E03.9 Hypothyroidism, unspecified (principal); I10 Essential (primary) hypertension
CPT/HCPCS: 80053; 84443

== ENCOUNTER → 2020-01-19 08:32 | Outpatient (BNVA) | payer MEDICARE, BC, SELFPAY | PROVIDERS: PCP Family Medicine; Referring Provider Family Medicine; Visit Provider Student in an Organized Health Care Education/Training Program | DX: R69 Illness, unspecified (principal) ==

== ENCOUNTER 2020-01-19 11:50 | Outpatient (CLI) | payer MEDICARE, BC, SELFPAY ==
--- NOTE | 2020-01-19 09:00 | DI.RAD_ITS ---
EXAM: XR SHOULDER LT COMPLETE 2+V CLINICAL HISTORY: new left shoudler pain and weakness. TECHNIQUE: 2D digital imaging was performed. COMPARISON: No exams were available for comparison FINDINGS: There is no evidence of fracture or dislocation no abnormal soft tissue densities. No osseous lesion s. Subacromial space appears unremarkable. Mild degenerative changes in the AC joint. No downgoing osteophytes. IMPRESSION: No significant radiographic findings in the left shoulder. DATA REPOSITORY: RADIATION DOSE DELIVERED:
== END 2020-01-19 12:10 ==
PROVIDERS: PCP Family Medicine; Referring Provider Family Medicine; Visit Provider Student in an Organized Health Care Education/Training Program
DX: M25.512 Pain in left shoulder (principal); S46.012A Strain of muscle(s) and tendon(s) of the rotator cuff of left shoulder, initial encounter; W01.0XXA Fall on same level from slipping, tripping and stumbling without subsequent striking against object, initial encounter; Z96.642 Presence of left artificial hip joint; Z98.890 Other specified postprocedural states; I10 Essential (primary) hypertension
CPT/HCPCS: 99214; 73030

== ENCOUNTER 2020-01-28 01:02 | Outpatient (CLI) | payer MEDICARE, BC, SELFPAY ==
--- NOTE | 2020-01-28 06:30 | DI.MRI_ITS ---
EXAM: MR UPPER JOINT LT WO CLINICAL HISTORY: SHOULDER PAIN, LT ROTATOR CUFF TEAR,M75.102 TECHNIQUE: Multiplanar multisequence MRI of the shoulder was performed. COMPARISON: Left shoulder x-rays 01/19/2020 were reviewed. MRI September 2017 was of the opposite shou lder. FINDINGS: MARROW:There is no evidence of fracture, Hill-Sachs deformity, nor ominous osseous lesions. ROTATOR CUFF MECHANISM: AC JOINT/ACROMIUM: Mild degenerative changes noted in the AC joint. No prominent downgoing osteophyt es. Mild downsloping acromion.. There is no evidence of os acromiale. Supraspinatus: There is a large full-thickness tear with retraction of the musculotendinous junction to the mid humeral head level. Significant diminution of the subacromial space. Some muscle atrophy . Infraspinatus: Intact. No evidence of tear nor muscle atrophy. Teres Minor: Intact. No evidence of tear nor muscle atrophy. Subscapularis/anterior cuff: Full-thickness tear with retraction of the multipennate insertional fibe rs. GLENOHUMERAL JOINT: Moderate-sized joint effusion, extending into the medial recess. No degenerative subarticular cysts. No evidence of optic capsular tear. BICEPS TENDON: The biceps tendon is displaced medially from the intertubercular groove. It is still attached to the anterosuperior labrum. LABRUM: There is labral attenuation but no evidence of obvious labral tear is. No evidence of parala bral cyst. QUADRILATERAL SPACE: No evidence of mass in the region of the axillary nerve and dorsal circumflex hu meral vessels. Visualized triceps muscle at this level appears unremarkable. IMPRESSION: 1. There full-thickness large tears in both the supraspinatus and the anterior cuff-subscapularis as described above results enlarged bare area. Infraspinatus and teres minor remain intact. 2. The long head biceps tendon is displaced medially from the intertubercular groove but otherwise no t torn. No prominent labral tears evident. 3. Moderate-large glenohumeral joint effusion. DATA REPOSITORY:
== END 2020-01-28 01:22 ==
PROVIDERS: PCP Family Medicine; Visit Provider Student in an Organized Health Care Education/Training Program
DX: M75.122 Complete rotator cuff tear or rupture of left shoulder, not specified as traumatic (principal); M25.412 Effusion, left shoulder; S46.119A Strain of muscle, fascia and tendon of long head of biceps, unspecified arm, initial encounter
CPT/HCPCS: 73221

== ENCOUNTER → 2020-01-29 08:31 | Outpatient (BNVA) | payer MEDICARE, BC, SELFPAY | PROVIDERS: PCP Family Medicine; Referring Provider Family Medicine; Visit Provider Student in an Organized Health Care Education/Training Program | DX: S46.012D Strain of muscle(s) and tendon(s) of the rotator cuff of left shoulder, subsequent encounter (principal); X58.XXXD Exposure to other specified factors, subsequent encounter; Z11.59 Encounter for screening for other viral diseases | CPT/HCPCS: 99213 ==

== ENCOUNTER 2020-01-30 03:32 | Outpatient (CLI) | payer MEDICARE, BC, SELFPAY ==
[2020-02-01 16:52] LABS: COVID-19 RT-PCR Result NEGATIVE (Negative)
== END 2020-01-30 03:52 ==
PROVIDERS: PCP Family Medicine; Visit Provider Student in an Organized Health Care Education/Training Program
DX: Z11.59 Encounter for screening for other viral diseases (principal); Z01.818 Encounter for other preprocedural examination
CPT/HCPCS: U0003

== ENCOUNTER 2020-02-03 08:55 | Day surgery (SDC) | payer MEDICARE, BC, SELFPAY ==
[2020-02-03 09:12] VITALS: BP 131/73; PULSE 58; RESP 18; TEMP 36.5; O2SAT 96
--- NOTE | 2020-02-03 09:32 | PDOC.DSDIS_ITS ---
Documented by User: Kiko Brady MD 02/03/20 17:00 Discharge Plan Disposition Patient Disposition: HOME Condition: Good Discharge Details Reason For Visit: Left Rotator Cuff Tear Attending Provider: Kiko Brady Primary Care Provider: Nadir Rossi Home Meds and New Rx's Prescriptions: New acetaminophen 500 mg tablet 1,000 mg PO Q8H PRN (Reason: pain) Qty: 90 RF: 3 ibuprofen 600 mg tablet 600 mg PO TID PRNQty: 90 RF: 3 pantoprazole 40 mg tablet,delayed release (DR/EC) 40 mg PO DAILY Qty: 30 RF: 0 oxycodone 5 mg tablet 5 mg PO Q6H PRN (Reason: Pain) Qty: 6 RF: 0 Continued turmeric 400 mg capsule 500 mg PO BID RF: 0 fortifeye PO RF: 0 aspirin 81 mg tablet,chewable 81 mg PO DAILY RF: 0 cetirizine 10 mg tablet,chewable 10 mg PO DAILY RF: 0 levothyroxine 25 mcg tablet 25 mcg PO QHS Qty: 90 RF: 3 hydrochlorothiazide 25 mg tablet 25 mg PO DAILY Qty: 90 RF: 3 rosuvastatin 10 mg tablet 10 mg PO DAILY Qty: 90 RF: 3 grape seed extract 50 mg tablet 300 mg PO DAILY RF: 0 losartan 25 mg tablet 25 mg PO HS RF: 0 multivitamin,tx-minerals Tablet 1 tab PO DAILY RF: 0 Discharge Instructions Stand Alone Forms: Anes.Nerve Block Instructions, Caitlyn Levin w/RCR Referrals: Kiko Brady MD [ [facility] STAFF PHYSICIAN] - Equipment/Supplies: Sling Activity:: Elevate Remove Dressings/Wound Care:: 72 hours Shower/Bathe:: 72 hours Diet:: As Tolerated Discharge Orders Discharge Orders: Discharge Order (Routine); Ordered 02/03/20 Ordered By: Kiko Brady DS: Diagnosis Discharge Diagnosis (1) Traumatic tear of left rotator cuff: Status: Acute Documented by User: HANANE Florian 02/03/20 11:59 Discharge Plan Disposition Patient Disposition: HOME Condition: Good Discharge Details Reason For Visit: Left Rotator Cuff Tear Attending Provider: Kiko Brady Primary Care Provider: Nadir Rossi Home Meds and New Rx's Prescriptions: New acetaminophen 500 mg tablet 1,000 mg PO Q8H PRN (Reason: pain) Qty: 90 RF: 3 ibuprofen 600 mg tablet 600 mg PO TID PRNQty: 90 RF: 3 pantoprazole 40 mg tablet,delayed release (DR/EC) 40 mg PO DAILY Qty: 30 RF: 0 oxycodone 5 mg tablet 5 mg PO Q6H PRN (Reason: Pain) Qty: 6 RF: 0 Continued turmeric 400 mg capsule 500 mg PO BID RF: 0 fortifeye PO RF: 0 aspirin 81 mg tablet,chewable 81 mg PO DAILY RF: 0 cetirizine 10 mg tablet,chewable 10 mg PO DAILY RF: 0 levothyroxine 25 mcg tablet 25 mcg PO QHS Qty: 90 RF: 3 hydrochlorothiazide 25 mg tablet 25 mg PO DAILY Qty: 90 RF: 3 rosuvastatin 10 mg tablet 10 mg PO DAILY Qty: 90 RF: 3 grape seed extract 50 mg tablet 300 mg PO DAILY RF: 0 losartan 25 mg tablet 25 mg PO HS RF: 0 multivitamin,tx-minerals Tablet 1 tab PO DAILY RF: 0 Discharge Instructions Stand Alone Forms: Anes.Nerve Block Instructions, Caitlyn Levin w/RCR Referrals: Kiko Brady MD [ [facility] STAFF PHYSICIAN] - Equipment/Supplies: Sling Activity:: Elevate Remove Dressings/Wound Care:: 72 hours Shower/Bathe:: 72 hours Diet:: As Tolerated Discharge Orders Discharge Orders: Discharge Order (Routine); Ordered 02/03/20 Ordered By: Kiko Brady
[2020-02-03] MEDS: Lactated Ringers 1,000 ML 80 ML IV (09:33)
[2020-02-03] MEDS: ceFAZolin 2 GM/50 ML BAG IVPB (12:28)
[2020-02-03] MEDS: EPINEPHrine 30 MG/30 ML VIAL (13:42)
[2020-02-03 15:13] VITALS: BP 124/72; PULSE 52; RESP 12; TEMP 36.1; O2SAT 100
[2020-02-03 15:18] VITALS: BP 135/66; PULSE 51; RESP 16; TEMP 36.1; O2SAT 100
[2020-02-03 15:23] VITALS: BP 124/65; PULSE 53; RESP 16; TEMP 36.1; O2SAT 99
[2020-02-03 16:08] VITALS: BP 141/73; PULSE 59; RESP 20; TEMP 36.3; O2SAT 96
--- NOTE | 2020-02-03 22:36 | W.PM.OP ---
Date of service: 02/03/20 Time of Service: 14:37 Operative Note Operative Note DATE OF PROCEDURE: 02/03/20 PRE-OP DIAGNOSIS: Left Rotator Cuff Tear, Biceps Tendon Partial Tear POST-OP DIAGNOSIS: same PROCEDURE: - Arthroscopic Rotator Cuff Repair - Extensive debridement of anterior and posterior glenohumeral joint and rotator cuff - Arthroscopic Biceps Tenodesis - Subacromial Debridement with Acromioplasty SURGEON: Kiko Brady APARTMENT MAINTENANCE WORKER: Michael Schuler ANESTHESIA: GETA and regional ESTIMATED BLOOD LOSS: 0 PATHOLOGY: none sent COMPLICATIONS: None Patient was transported to: PACU Patient's condition: stable Indications: I have seen Brando in clinic for a painful shoulder. Pathology was confirmed based on MRI and exam findings. Nonoperative measures were exhausted but disability and pain persisted. I discussed shoulder arthroscopy and procedures. I reviewed the risks of the procedures to include, but not limited to, bleeding, infection, pain, stiffness, damage to nerves or vessels, recurrence, hardware failure, blood clot. Despite these risks, the patient elected to proceed. Findings: A diagnostic arthroscopy was performed with the following findings: Articular Side - Glenohumeral Joint: No significant arthritic changes - Labrum: Superior labral tearing - Cuff: Near complete subscapularis tear with only some inferior tendon remaining, complete supraspinatus tear; massive tear - Biceps: Tearing of the tendon with medial dislocation Subacromial Side - Bursal: Notable inflammatory bursa, complete supraspinatus tear - Small anterolateral spur Procedure Description: Brando was greeted in the preoperative holding area where the correct side was identified and marked. The consent was reviewed with the patient and signed. The history and physical was updated. All questions were answered. Brando was taken back to the PACU for administration of an intrascalene nerve block. He was then taken to the operating room. The patient was placed into the supine position on the operating room table. A general anesthetic was administered. Brando was then positioned in the beach chair position. All bony prominences were well padded. The head was placed in a foam quantitative equity head in a neutral position. Prophylactic antibiotics in the form of cefazolin were administered. The left arm/shoulder was then prepped with Chloraprep and draped in a standard fashion with stockinette and shoulder drape. A timeout to confirm correct identity, side and site, procedure, allergies, anesthesia, and medical concerns was performed. The arm was placed into a pneumatic salmeron, [id number]. The shoulder arthroscopy was then performed. The glenohumeral joint was injected with 20 cc of normal saline with good flow back. A standard posterior portal was made and the joint was entered atraumatically with a blunt arthroscope. Once inside we had good visualization of the structures of the glenohumeral joint. An anterior portal was established with spinal needle localization. A 6.5 mm cannula was inserted. A probe was then used to perform a diagnostic arthroscopy. Immediately the biceps tendon was seen to be in a subluxed medial position and there was no easily visible subscapularis tendon. There is noted to be no significant cartilage damage of the glenoid humeral joint. The labrum was frayed superiorly and anteriorly. There were no loose bodies in the inferior pouch. The superior rotator cuff was completely torn from the greater tuberosity. The biceps tendon had tearing along its course within the joint as well as a medial, displaced, position. The subscapularis was completely torn retracted and the most at the superior edge and in a crescent type pattern attached distally. And debridement was performed of the rotator interval as well as the space around the subscapularis tendon. The biceps tendon was tagged with a #2 Ortho cord suture, excess tendon cut outside of the shoulder, and then placed back into the lateral shoulder for later tenodesis. The subscapularis was notably retracted to the level of the glenoid but had a robust attachment of the comma sign, coracohumeral ligament. Anterolateral portal was an established through the superior rotator cuff tear using a spinal needle. A 7.5 mm cannula was placed. This became the working portal. I was able to use a tissue grasper to check the mobilization of the subscapularis. I was able to bring the subscapularis over to the lesser tuberosity. Used a shaver to once again free up any adhesions but there are very few dense adhesions in the subscapularis was easily mobilized to the lesser tuberosity. I did not release any of the attachments to the comma sign, leaving it attached to hopefully assist with reduction of the supraspinatus. The subscapularis tear was quite large and incorporated at least two thirds of the subscapularis. I debrided all the exposed lesser tuberosity with a shaver. I used the distal aspect of the biceps tendon course as a guide as a groove was difficult to appreciate. Once this was prepared I then placed 2 4.5 mm Mytec Healix anchors in the medial aspect of the lesser tuberosity footprint, 1 distal and 1 proximal. Passing sutures in a retrograde technique from the anterior lateral portal, I placed a total of 3 horizontal mattress sutures. The more distal sutures were near to the tendon edge and the more proximal sutures were in more retracted subscapularis tendon. This allowed the subscapularis to mobilize over to the lesser tuberosity. The most superior suture was placed just medial to the coracohumeral ligament attachments. I then tied these from the anterior portal using standard arthroscopic knot tying techniques. This nicely reapproximated the subscapularis down to the lesser tuberosity. There was some remaining subscapularis stump and a large exposed footprint so I placed the suture limbs from the superior 2 sutures as well as the suture from the biceps tendon into a lateral row anchor in the lateral portion of the lesser tuberosity using a 4.75 mm Mytec Healix knotless anchor. The suture limbs were tightened before placing them to bone which placed the biceps tendon against the exposed lesser tuberosity at the level of the groove as well. This is seem to reproduce the normal anatomy of the shoulder. The shoulder was tested to about 45 degrees of external rotation and showed no pull off of the subscapularis. Internal rotation also showed no liftoff from the footprint. Suture limbs were cut and additional debridement of the superior rotator cuff was performed before moving to the subacromial space. The arthroscope was then inserted into the subacromial space. The 6.5 mm cannula was placed lateral to the CA ligament. A complete bursectomy is performed anteriorly, posteriorly, and laterally with electrocautery and shaver. Using a spinal needle a posterior lateral portal was established. This became the viewing portal and a 6.5 mm cannula was placed. After bursectomy was completed the tear was identified. The tear morphology was somewhat difficult to identify. However, the tissue was easily mobile. If anything it was somewhat too mobile and I was concerned about over reducing the tendon tear. It appeared to be an L-type shaped tear with some loose attachments to the subscapularis which made this reduction much easier. Pulling from a posterior to anterior direction I was able to reduce the tendon with very minimal dog earring. It appeared that the infraspinatus was still largely attached to the greater tuberosity but its fibers which were slightly more medial and may have been partially torn. These tendon edges were debrided. The greater tuberosity was debrided down to bone. I then placed 2 4.5 mm Mytec Healix anchors along the medial portion of the exposed tuberosity. I then placed 4 horizontal mattress sutures into the lateral tendon stump. These were tested to make sure they appropriately reduce the tendon before placement. After these sutures were placed they were tied using standard arthroscopic knot tying techniques with complete reduction of the rotator cuff onto the tuberosity. There was a very small dogears seen posteriorly at the junction between supraspinatus and infraspinatus. I then placed 1 suture limb from each of the tied sutures into a lateral row anchor, 1 placed anteriorly and one placed posteriorly. These were using a 4.75 mm Mytec Healix knotless anchor. This created a bridge type construct. Using the extra suture from the posterior knotless anchor, I placed this into the dogear and tied it down for extra support. Suture limbs were cut. I did not release the CA ligament but I did elevated off the anterior lateral corner for better visualization of the acromion. There did seem to be a small downsloping anterolateral spur. Therefore, a 5.0 mm norma was inserted from the posterior portal. The anterolateral corner of the acromion was then resected in plane with the posterior slope of the acromion. The scope equipment was removed from the shoulder. Excess fluid was evacuated. The portal sites were closed with 3-0 Monocryl. The wounds were dressed with Steri-Strips, 4 x 4's, ABDs, Medipore tape. A sling was applied. The patient tolerated the procedure well and was returned to the PACU in a stable condition suffering no known complication.
== END 2020-02-03 17:20 | disposition home or self-care (01) ==
PROVIDERS: PCP Family Medicine; Visit Provider Student in an Organized Health Care Education/Training Program
PROC: (CPT 29827; principal; 2020-02-03 11:30)
DX: S46.012A Strain of muscle(s) and tendon(s) of the rotator cuff of left shoulder, initial encounter (principal); S46.112A Strain of muscle, fascia and tendon of long head of biceps, left arm, initial encounter; S43.432A Superior glenoid labrum lesion of left shoulder, initial encounter; X58.XXXA Exposure to other specified factors, initial encounter; M75.52 Bursitis of left shoulder; G89.18 Other acute postprocedural pain
CPT/HCPCS: 29827; 29823; 29826; 29828; C1713; 76942; L3670; J0690; J1885; J2001; J2405

== ENCOUNTER → 2020-03-15 10:33 | Outpatient (BNVA) | payer MEDICARE, BC, SELFPAY | PROVIDERS: PCP Family Medicine; Referring Provider Family Medicine; Visit Provider Physician Assistant Surgical | DX: Z47.89 Encounter for other orthopedic aftercare (principal) ==

== ENCOUNTER → 2020-04-26 09:33 | Outpatient (BNVA) | payer MEDICARE, BC, SELFPAY | PROVIDERS: PCP Family Medicine; Referring Provider Family Medicine; Visit Provider Student in an Organized Health Care Education/Training Program | DX: Z47.89 Encounter for other orthopedic aftercare (principal) ==

== ENCOUNTER 2021-04-26 13:45 | Observation (INO) | payer MEDICARE, SELFPAY ==
[2021-04-26] VITALS (52 sets, daily range): BP systolic 73–165; BP diastolic 51–91; PULSE 43–57; RESP 6–19; TEMP 36.4–36.7; O2SAT 95–100
--- NOTE | 2021-04-26 13:45 | RT.EKG_ITS ---
APPROVED REPORT Exam: Resting ECG Reason for Exam: shoulder pain Patient Location: E HR:49 bpm ECG Measurements Heart Rate 49 AXIS DE 169 P 43 QRSd 94 QRS 40 QT 423 T 79 QTc 382 Conclusion Sinus bradycardia...rate< [address] dep inferior lateral, no old for comparison. no stemi.
--- NOTE | 2021-04-26 13:54 | ED.GENADUL_ITS ---
Discharge Plan Disposition Patient Disposition: [facility] INPATIENT Condition: Serious Discharge Details Clinical Impression: Atypical chest pain, Left shoulder pain Admit Date/Time: 04/26/21 18:06 Admit Provider: Asher Fernández Attending Provider: Asher Fernández Primary Care Provider: Nadir Rossi ED Provider: Cathie Churchill Discharge Data Discharge Date/Time-TO BE ENTERED AT DEPARTURE: 04/26/21 18:44 Medical Decision Making <HANANE Mcfadden - Last Filed: 04/27/21 09:24> Patient is a heart score of 5 with a dull ache to his left chest, will he does have an orthopedic history, he does have risk factors for coronary artery disease and I believe warrants admission for stress test His initial troponin is negative, his EKG shows some anterior lateral slight depression, no prior to compare At time of reassessment, patient does not have any additional anterior chest pain He is significantly bradycardic, it looks like he has a history of bradycardia when I compare this to prior, I do not believe that he is on any medications but would precipitate this He did receive aspirin upon initial presentation, as he did not have any discomfort at this time, will call hold off on nitroglycerin His pain is been present for approximately 24 hours and is atypical in nature, is not reproducible on assessment He will need admission for rule out likely stress test at the discretion of the admitting hospitalist His D-dimer is negative chest x-ray does not show acute abnormality per radiologist interpretation in my review care transitioned to Cathie Churchill NP at 1600 Medical Records Medical records reviewed: Yes I reviewed the patient's medical records. <Cathie hCurchill - Last Filed: 04/26/21 21:15> Patient is a heart score of 5 with a dull ache to his left chest, will he does have an orthopedic history, he does have risk factors for coronary artery disease and I believe warrants admission for stress test His initial troponin is negative, his EKG shows some anterior lateral slight depression, no prior to compare At time of reassessment, patient does not have any additional anterior chest pain He is significantly bradycardic, it looks like he has a history of bradycardia when I compare this to prior, I do not believe that he is on any medications but would precipitate this He did receive aspirin upon initial presentation, as he did not have any discomfort at this time, will call hold off on nitroglycerin His pain is been present for approximately 24 hours and is atypical in nature, is not reproducible on assessment He will need admission for rule out likely stress test at the discretion of the admitting hospitalist His D-dimer is negative chest x-ray does not show acute abnormality per radiologist interpretation in my review care transitioned to Cathie Churchill NP at 1600 1610: Care assumed from off going provider Lenore KOO , please see her original HPI and PE. At the time of signout pending repeat Troponin, EKG, and probable admission. 1752: Second troponin less than 50, repeat EKG shows bradycardia with resolution of the ST depression. Discussed results with patient and discussed option for inpatient versus outpatient stress test. Patient states that he has not had any of the achiness since being here but he always have a little bit of discomfort. He is not opposed to being admitted if needed. Hospitalist paged. 1804: Spoke with Dr. Fernández who is on-call for hospitalist who agrees to accept patient for admission for observation for atypical chest pain. Patient remained in hemodynamically stable condition throughout the remainder of stay. This text was generated using [employer] system, please disregard any oddities of phrase or misspellings. HPI <HANANE Mcfadden - Last Filed: 04/27/21 09:24> General Date/Time Provider Initiated Documentation: 04/26/21 13:53 . HPI Narrative: This 66-year-old male presents with left-sided chest pressure for the past 24 hours. He denies any alleviating factors but does state that the pain is exacerbated with pressure on the left side. He states he has a history of chronic shoulder pain but this pain is different. He does have some intermitte nt nausea without diaphoresis. He states the pain radiates through to her back. Mother had an DE in her late 60s early 70s. Known history of hypertension and hyperlipidemia. Did have recent flight denies prior history of coagulopathy. Return from [place] 1.5 weeks ago. Denies any diaphoresis. Denies any new calf pain or swelling. Denies any cough or cold symptoms. Denies any new shortness of breath. Drinks approximately 3 alcoholic beverages every evening. States the amount he drinks varies. Denies any IV drug abuse or tobacco abuse. Denies any history of withdrawal. Related Data Home Medications Medication Instructions Recorded Confirmed cetirizine 10 mg chewable tablet 10 mg PO DAILY tab-cap 12/31/18 04/26/21 grape seed extract 50 mg tablet 300 mg PO DAILY tab 08/05/19 04/26/21 turmeric 400 mg capsule 500 mg PO BID cap 08/05/19 04/26/21 multivitamin,tx-minerals 1 tab PO DAILY 02/03/20 04/26/21 losartan 25 mg tablet 25 mg PO HS #90 tab 09/02/20 04/26/21 hydrochlorothiazide 25 mg tablet 25 mg PO DAILY #90 tab 01/18/21 04/26/21 levothyroxine 25 mcg tablet 25 mcg PO QHS #90 tab 01/18/21 04/26/21 rosuvastatin 10 mg tablet 10 mg PO DAILY #90 tab-cap 02/07/21 04/26/21 Previous Rx's Medication Instructions Recorded losartan 25 mg tablet 25 mg PO HS #90 tab 09/02/20 hydrochlorothiazide 25 mg tablet 25 mg PO DAILY #90 tab 01/18/21 levothyroxine 25 mcg tablet 25 mcg PO QHS #90 tab 01/18/21 rosuvastatin 10 mg tablet 10 mg PO DAILY #90 tab-cap 02/07/21 Allergies Allergy/AdvReac Type Severity Reaction Status Date / Time No Known Drug Intolerances Allergy Verified 04/26/21 14:00 enviromental allergies Allergy Mild runny nose Uncoded 04/26/21 14:00 Review of Systems <HANANE Mcfadden - Last Filed: 04/27/21 09:24> Narrative: Review of systems obtained x7 and negative aside from indication in [facility] <HANANE Mcfadden - Last Filed: 04/27/21 09:24> All Active Problems (Updated 04/27/21 @ 09:23 by HANANE Mcfadden) Obesity (Chronic) Left shoulder pain (Chronic) Atypical chest pain (Acute) Status post left rotator cuff repair (Acute 02/03/20) Keratoacanthoma (Acute) Plantar fasciitis of right foot (Acute) Trochanteric bursitis, left hip (Acute) Colon polyp (Acute) Diverticulosis (Acute) Trigger thumb of right hand (Acute ~10/08/18) Condyloma acuminatum (Acute 09/08/16) 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) Subclinical hypothyroidism (Chronic 05/12/13) 2014 Other and unspecified hyperlipidemia (Chronic 04/10/11) est risk ~15% (2014 based on 2010 off med and BP 140) Essential (primary) hypertension (Chronic 07/14/14) Chronic rhinitis (Chronic 04/10/11) chronic citirizine rx Abnormal fasting glucose (Chronic 12/26/16) Medical History Allergic rhinitis Hyperlipidemia Hypertension Jaw fracture Osteoarthritis Primary osteoarthritis of left hip (09/10/17) Right shoulder pain Subclinical hypothyroidism Surgical History Appendectomy Colonoscopy - IV Sedation 2005-normal H/O total hip arthroplasty S/P colonoscopy 10/04/18 S/P trigger finger release Right thumb Status post left hip replacement L YEHUDA - anterior approach DOS: 12/11/17 Dr. Brady Tear of right rotator cuff (09/10/17) Status post repair on 03/26/2018 Vasectomy Family History Mother Heart disease Hypertension Father Arthritis Sister Breast cancer Other Hyperlipidemia Obesity Social History Smoking/Tobacco Use Status: Never Second Hand Exposure: No Smoking risk assessment performed?: Yes Alcohol Intake: current Alcohol Intake frequency: 0-2 drinks per day Alcohol type: beer, wine and hard liquor Details: couple drinks/night Drug use: Never Substance use type: does not use Caregiver/Support person: No Household members: spouse Number of Children: 2 Communication Needs: None 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 Pets and animals: Yes Pets and animals: cat(s) Sexually active: Yes Do you think of yourself as: straight/heterosexual Current gender identity: male What is your relationship status?: How often do you talk on the phone with friends or family?: decline to answer How often do you get together with friends or relatives?: decline to answer Do you belong to any clubs or organized social groups?: no Panel score (0-1 are the most socially isolated patients): 1 What type of physical activity do you participate in: walking, bicycling and other Details: kayaking Duration: 30-45 minutes/day Frequency: daily Seatbelt use: always Helmet use: No Drive intox or ride w/intox tank truck driver: No Water heater temp set <120 deg: Yes Working smoke detector in home: Yes Fire extinguisher in home: Yes Carbon monox detector in home: Yes Firearms in home: No Do you feel safe at home: Yes Do you feel safe in your relationship?: Yes Exam <HANANE Mcfadden - Last Filed: 04/27/21 09:24> Eyes Sclera: sclerae normal Neck Neck: normal visual inspection Resp Effort & Inspection: normal respiratory effort Auscultation: clear to auscultation bilaterally Cardio Rate: bradycardic Rhythm: regular rhythm GI Inspection: normal to inspection Other: No abdominal bruit or pulsatile mass Skin General skin exam: no rashes or lesions noted Neuro General: patient alert Extrem General: normal to inspection Other: Distal pulses intact, no calf swelling or tenderness Sign Out <HANANE Mcfadden - Last Filed: 04/27/21 09:24> Sign Out Data: Sign Out Comment: pending repeat ekg, troponin Last updated by Lenore Escalona PA at 04/26/21 15:57
--- NOTE | 2021-04-26 14:15 | DI.RAD_ITS ---
Exam(s) XR PORTABLE CHEST AP EXAM: XR PORTABLE CHEST AP CLINICAL HISTORY: chest pain, left. TECHNIQUE: 2D digital imaging was performed. COMPARISON: CR RIGHT SHOULDER COMPLETE from 06/26/2017 FINDINGS: Heart size is upper normal. The mediastinum is not widened. Lungs are clear. No infiltrates nor obvious pleural effusions. IMPRESSION: No acute pulmonary findings on this single AP portable view of the chest. DATA REPOSITORY: RADIATION DOSE DELIVERED: All CT scans at this facility use at least one of these dose optimization techniques: automated exposure control; mA and/or kV adjustment per patient size (includes targeted e xams where dose is matched to clinical indication); or iterative reconstruction.
[2021-04-26] MEDS: Aspirin 81 MG CHEW 324 MG CH (14:31)
[2021-04-26 14:36] LABS: Abs Immature Grans 0.02 10^3/uL (0.0-0.06); Absolute Basophil Count 0.06 10^3/uL (0.0-0.2); Absolute Eosinophil Count 0.11 10^3/uL (0.0-0.7); Absolute Lymphocyte Count 2.34 10^3/uL (1.2-3.4); Absolute Monocyte Count 0.72 10^3/uL (0.1-0.8); Basophils % 0.6; Eosinophils % 1.1; HCT 41.3 % (40.0-50.0); HGB 14.2 g/dL (13.5-17.5); Immature Grans % 0.2; Lymphocytes % 22.8; MCHC 34.4 % (32.0-36.0); MCV 87.3 fL (80-95); MPV 9.9 fL (8.0-11.0); Neutrophils % 68.3; Nucleated RBC 0 %; Platelet Count 213 10^3/uL (130-400); RBC 4.73 10^6/uL (4.36-5.78); RDW 12.2 % (11.8-14.1); RDW-SD 38.9 fL; WBC 10.25 10^3/uL (4.4-10.8)
[2021-04-26 15:00] LABS: ALT 43 U/L (16-63); AST 25 U/L (15-37); Albumin 4.1 g/dL (3.4-5.0); Alkaline Phosphatase 102 U/L (46-116); Anion Gap 8.8 mmol/L (3-11); BUN 12 mg/dL (7-18); Bilirubin, Total 0.5 mg/dL (0.2-1.0); CO2 27.2 mmol/L (21.0-32.0); Calcium 8.9 mg/dL (8.5-10.1); Chloride 103 mmol/L (98-107); Glucose 142 mg/dL (74-106); Magnesium 2.2 mg/dL (1.8-2.4); NT-proBNP 76 pg/mL (<300); Potassium 3.4 mmol/L (3.5-5.1); Sodium 139 mmol/L (136-145); Total Protein 7.8 g/dL (6.4-8.2); Troponin I < 50 ng/L (<or=60)
[2021-04-26 15:14] LABS: D-Dimer 343 ng/mlFEU (<500)
--- NOTE | 2021-04-26 17:00 | RT.EKG_ITS ---
APPROVED REPORT Exam: Resting ECG Reason for Exam: chest pain Patient Location: E HR:46 bpm ECG Measurements Heart Rate 46 AXIS MN 172 P 60 QRSd 99 QRS 44 QT 455 T 88 QTc 396 Conclusion Sinus bradycardia...rate< 60
[2021-04-26 17:38] LABS: Troponin I < 50 ng/L (<or=60)
--- NOTE | 2021-04-26 18:41 | W.PM.HP.N ---
Date of service: 04/26/21 Time of Service: 18:43 Assessment and Plan Assessment and plan (1) Atypical chest pain: Start date: 04/26/21 Status: Acute Assessment and plan: This is a 66-year-old gentleman who has had left shoulder discomfort since his surgery in January 2020 with incomplete rehabilitation and weakness over his shoulder and upper chest more so recently. He feels that when he is trying to rehabilitate his shoulder his upper left chest in the pectoralis area is hold for sprain and he has a dull pressure sensation. His concerned about persistence of the left chest pain and radiation into his shoulder blade and shoulder and was advised by his PCP to be evaluated for possible cardiac etiology. Thus far EKG and imaging along with troponins are unrevealing. The patient will be admitted for observation on telemetry and trend troponins with consideration of exercise stress test prior to discharge. If he does well and exercise stress test cannot be performed before discharge this should be arranged in the near future and patient to work harder on cardiovascular risk control including obesity and deconditioning. He does walk daily but needs to lose weight. He did not receive nitroglycerin and his discomfort is continuous though less than 1 most of the time unless he uses his shoulder or moves. He will be given analgesics to help with sleep. He will not be initiated on Plavix as was given aspirin in the ED and is already on a statin and ARB. Beta-tariq would not be initiated with his bradycardia. (2) Left shoulder pain: Status: Chronic Assessment and plan: Patient has had problems left shoulder since surgery in January 2020 and needs to be more aggressive with rehabilitation. This may be the etiology of his chest wall pain and atypical chest pain. (3) Obesity: Status: Chronic Assessment and plan: Patient knows and was advised again to lose weight and cardiovascular conditioning program. He does have good start and that he walks his dog daily for 3 months. He work on diet as well. Structured aerobic and cardiovascular exercise may be helpful. History of Present Illness History of Present Illness Chief Complaint: Left chest pain radiating into shoulder Narrative: This is a 66-year-old male patient who presented to the ED today after having his left chest pain which is over the upper pectoralis area extending into his left shoulder seems to worsen and he evaluated it with research on [employer] and then called his physician been advised to report to the ED for evaluation. He has been having left chest wall pressure which he does not call pain for week having had left shoulder surgery and January 2020 and never having completely rehabilitated himself. He feels that he has weakness over his shoulder and shoulder girdle and that this stretching sensation in his left upper chest feels muscular but was of more concern because of radiation and slight change recently. When he googled information he was concerned about peritonitis. In the ED his evaluation was negative for any acute ST-T changes on EKG though there were subtle differences between the 2 EKGs performed. He had 2 negative troponins and was advised to be admitted for observation and trending troponins overnight while having cardiac monitoring. There was some discussion of possible exercise stress test or modified stress test prior to discharge if appropriate. He did have a family history of heart disease in his mother but his father and siblings have no early age heart disease. Of significance is the patient is overweight as is shoulder surgery though he does walk 3 miles a day with his dog. Feels his heart rate is slow and strong because of his walking routine. He does overeat. He has no associated diaphoresis but he does have some radiation of the pain into his shoulder blade and was uncomfortable the night prior to admission because his shoulder and left upper chest discomfort. He is slightly anxious but downplays this during discussion. His chest pain was not reproducible by palpation of the chest wall in the ED. He does not have imaging other than a chest x-ray because a negative D-dimer and history not being consistent with pulmonary embolus or dissecting aneurysm. Review of Systems Narrative: 13 point review of systems otherwise unrevealing or stable. Patient is fairly sedentary and obese as mentioned. 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) Subclinical hypothyroidism (Chronic 05/12/13) 2014 Other and unspecified hyperlipidemia (Chronic 04/10/11) est risk ~15% (2015 based on 2009 off med and BP 140) Essential (primary) hypertension (Chronic 07/14/14) Chronic rhinitis (Chronic 04/10/11) chronic citirizine rx Abnormal fasting glucose (Chronic 12/26/16) Medical History Allergic rhinitis Hyperlipidemia Hypertension Jaw fracture Osteoarthritis Primary osteoarthritis of left hip (09/10/17) Right shoulder pain Subclinical hypothyroidism Surgical History Appendectomy Colonoscopy - IV Sedation 2005-normal H/O total hip arthroplasty S/P colonoscopy 10/04/18 S/P trigger finger release Right thumb Status post left hip replacement L YEHUDA - anterior approach DOS: 12/11/17 Dr. Brady Tear of right rotator cuff (09/10/17) Status post repair on 03/26/2018 Vasectomy Family History Mother Heart disease Hypertension Father Arthritis Sister Breast cancer Other Hyperlipidemia Obesity Social History Smoking/Tobacco Use Status: Never Second Hand Exposure: No Smoking risk assessment performed?: Yes Alcohol Intake: current Alcohol Intake frequency: 0-2 drinks per day Alcohol type: beer, wine and hard liquor Details: couple drinks/night Drug use: Never Substance use type: does not use Caregiver/Support person: No Household members: spouse Number of Children: 2 Communication Needs: None 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 Pets and animals: Yes Pets and animals: cat(s) Sexually active: Yes Do you think of yourself as: straight/heterosexual Current gender identity: male What is your relationship status?: How often do you talk on the phone with friends or family?: decline to answer How often do you get together with friends or relatives?: decline to answer Do you belong to any clubs or organized social groups?: no Panel score (0-1 are the most socially isolated patients): 1 What type of physical activity do you participate in: walking, bicycling and other Details: kayaking Duration: 30-45 minutes/day Frequency: daily Seatbelt use: always Helmet use: No Drive intox or ride w/intox team driver: No Water heater temp set <120 deg: Yes Working smoke detector in home: Yes Fire extinguisher in home: Yes Carbon monox detector in home: Yes Firearms in home: No Do you feel safe at home: Yes Do you feel safe in your relationship?: Yes Meds Allergies and Home Medications Allergies Allergy/AdvReac Type Severity Reaction Status Date / Time No Known Drug Intolerances Allergy Verified 04/26/21 14:00 enviromental allergies Allergy Mild runny nose Uncoded 04/26/21 14:00 Home Medications Medication Instructions Recorded Confirmed Type cetirizine 10 mg chewable tablet 10 mg PO DAILY tab-cap 12/31/18 04/26/21 History grape seed extract 50 mg tablet 300 mg PO DAILY tab 08/05/19 04/26/21 History turmeric 400 mg capsule 500 mg PO BID cap 08/05/19 04/26/21 History multivitamin,tx-minerals 1 tab PO DAILY 02/03/20 04/26/21 History losartan 25 mg tablet 25 mg PO HS #90 tab 09/02/20 04/26/21 Rx hydrochlorothiazide 25 mg tablet 25 mg PO DAILY #90 tab 01/18/21 04/26/21 Rx levothyroxine 25 mcg tablet 25 mcg PO QHS #90 tab 01/18/21 04/26/21 Rx rosuvastatin 10 mg tablet 10 mg PO DAILY #90 tab-cap 02/07/21 04/26/21 Rx Exam Narrative Exam Narrative: General: Patient is moderately obese, appears appropriate for age and in no acute distress though slightly anxious when discussing his chest discomfort. He is alert and oriented x3. Neck: Supple without JVD. Lungs: Bronchovesicular breath sounds diffusely with slight coarse inspiratory and expiratory crackles which are diffuse and nonfocal clearing with cough. Patient states that he has allergies but is not a smoker. No expiratory wheeze. No increased expiratory phase. Aeration is fair. Back: Stooped posture without CVA tenderness. Heart: Regular rhythm with bradycardic rate, no murmurs or gallops appreciated. No rubs. Abdomen: Obese contour, soft and nontender to palpation with no palpable hepatosplenomegaly. Genitalia/rectal: Exam deferred. Extremities: Without clubbing, or pitting edema. All joints have fair range of motion. Peripheral pulses intact. Skin: Normal color, warm and dry. Neuro: Cranial nerves II through XII grossly intact, no focalizing motor deficits. No tremor. Psych: Normal affect and mood except for being slightly anxious and having pressured speech at times. No abnormal thought processes. Remote and recent memory intact. Results Imaging Chest x-ray: report reviewed (No acute cardiopulmonary findings.) Labs Result diagrams: 04/26/21 14:05 04/26/21 14:05 Labs: Laboratory Results - last 24 hr 04/26/21 04/26/21 04/26/21 14:05 14:05 14:24 WBC 10.25 RBC 4.73 Hgb 14.2 Hct 41.3 MCV 87.3 MCH 30.0 MCHC 34.4 RDW 12.2 Plt Count 213 MPV 9.9 Immature Gran % 0.2 Neutrophils % 68.3 Lymphocytes % 22.8 Monocytes % 7.0 Eosinophils % 1.1 Basophils % 0.6 Nucleated RBC % 0 Absolute Neutrophils 7.00 H Absolute Lymphocytes 2.34 Absolute Monocytes 0.72 Absolute Eosinophils 0.11 Absolute Basophils 0.06 D-Dimer 343 Sodium 139 Potassium 3.4 L Chloride 103 Carbon Dioxide 27.2 Anion Gap 8.8 BUN 12 Creatinine 1.0 Estimated GFR/1.73 m2 >= 60.00 Glucose 142 H Calcium 8.9 Magnesium 2.2 Total Bilirubin 0.5 AST 25 ALT 43 Alkaline Phosphatase 102 Troponin I < 50 NT-Pro-B Natriuret Pep 76 Total Protein 7.8 Albumin 4.1 TSH 2.00 04/26/21 17:13 WBC RBC Hgb Hct MCV MCH MCHC RDW Plt Count MPV Immature Gran % Neutrophils % Lymphocytes % Monocytes % Eosinophils % Basophils % Nucleated RBC % Absolute Neutrophils Absolute Lymphocytes Absolute Monocytes Absolute Eosinophils Absolute Basophils D-Dimer Sodium Potassium Chloride Carbon Dioxide Anion Gap BUN Creatinine Estimated GFR/1.73 m2 Glucose Calcium Magnesium Total Bilirubin AST ALT Alkaline Phosphatase Troponin I < 50 NT-Pro-B Natriuret Pep Total Protein Albumin TSH Last Vital Signs Pulse 45 L 04/26/21 18:16 Resp 12 04/26/21 18:20 BP 137/70 04/26/21 18:16 Pulse Ox 96 04/26/21 18:20 PAWSS Have you Been Recently Intoxicated or Drunk Within the Last 30 days?: No Have you Ever Experienced Previous Episodes of Alcohol Withdrawal?: No Have you ever Experienced Withdrawal Seizures?: No Have you ever Experienced Delirium Tremens(DT)s?: No Have you ever undergone Alcohol Rehabilitation Treatment (i.e, inpt ot outpatient treatment programs)?: No Have you ever Experienced Blackouts?: No Have you ever Combined Alcohol with other Downers within the last 90 days?: No Have you ever Combined Alcohol with any other Substance of Abuse during the last 90 days?: No Positive Blood Alcohol level on Presentation? [PCS.BAL]: No Evidence of Increased Autonomic Activity (i.e. HR>120, tremor, sweating, agitation, nausea)?: No Result: 0
[2021-04-26 19:07] LABS: Source Nasal/Nares
[2021-04-26 19:47] LABS: COVID-19 PCR Negative (Negative)
[2021-04-26] MEDS: Levothyroxine 25 MCG TAB PO (21:57)
[2021-04-26] MEDS: Losartan 25 MG TAB PO (21:57)
[2021-04-26 22:54] LABS: Troponin I < 50 ng/L (<or=60)
[2021-04-27 04:20] VITALS: PULSE 43
[2021-04-27 05:36] LABS: Abs Immature Grans 0.02 10^3/uL (0.0-0.06); Absolute Basophil Count 0.05 10^3/uL (0.0-0.2); Absolute Eosinophil Count 0.19 10^3/uL (0.0-0.7); Absolute Lymphocyte Count 2.37 10^3/uL (1.2-3.4); Absolute Neutrophil Count 4.37 10^3/uL (1.2-6.7); Basophils % 0.6; Eosinophils % 2.5; HCT 38.9 % (40.0-50.0); HGB 13.2 g/dL (13.5-17.5); Immature Grans % 0.3; Lymphocytes % 30.8; MCH 30.1 pg (27.0-33.0); MCHC 33.9 % (32.0-36.0); MCV 88.8 fL (80-95); MPV 9.6 fL (8.0-11.0); Monocytes % 9.1; Neutrophils % 56.7; Nucleated RBC 0 %; Platelet Count 183 10^3/uL (130-400); RBC 4.38 10^6/uL (4.36-5.78); RDW 12.1 % (11.8-14.1); RDW-SD 39.4 fL
[2021-04-27 05:44] VITALS: BP 153/78; PULSE 46; RESP 18; TEMP 36.4; O2SAT 95
[2021-04-27 05:51] LABS: ALT 33 U/L (16-63); AST 21 U/L (15-37); Albumin 3.5 g/dL (3.4-5.0); Alkaline Phosphatase 89 U/L (46-116); Anion Gap 9.5 mmol/L (3-11); BUN 12 mg/dL (7-18); Bilirubin, Total 0.4 mg/dL (0.2-1.0); CO2 27.5 mmol/L (21.0-32.0); Calcium 8.5 mg/dL (8.5-10.1); Chloride 109 mmol/L (98-107); Glucose 112 mg/dL (74-106); Potassium 3.8 mmol/L (3.5-5.1); Sodium 146 mmol/L (136-145); Total Protein 6.8 g/dL (6.4-8.2)
[2021-04-27 05:55] LABS: Troponin I < 50 ng/L (<or=60)
--- NOTE | 2021-04-27 07:15 | RT.EKG_ITS ---
APPROVED REPORT Exam: Resting ECG Reason for Exam: chest pain work up Patient Location: I HR:45 bpm ECG Measurements Heart Rate 45 AXIS AK 171 P 54 QRSd 123 QRS 48 QT 446 T 86 QTc 386 Conclusion Sinus bradycardia...rate< 50 Nonspecific intraventricular conduction delay...QRSd >115mS, not LBBB/RBBB Borderline T abnormalities, lateral leads...T flat/neg, I aVL V5 V6
[2021-04-27 07:25] VITALS: BP 157/87; PULSE 47; RESP 18; TEMP 36.6; O2SAT 97
[2021-04-27 07:30] VITALS: PULSE 53
[2021-04-27 07:59] LABS: Lab Add On Test DONE
[2021-04-27 08:18] LABS: Calculated LDL 97 mg/dL (<100); Cholesterol 166 mg/dL (<200); HDL Cholesterol 42 mg/dL (40-60); Triglyceride 137 mg/dL (<150)
--- NOTE | 2021-04-27 09:22 | INITIAL_ITS ---
- If Service Date Differs Date of service: 04/27/21 Time of Service: 09:22 Care Management Initial Assess REASON FOR HOSPITALIZATION:: Atypical chest pain PAST MEDICAL HISTORY/PAST SURGICAL HISTORY:: All Active Problems (Updated 04/26/21 @ 23:41 by Asher Fernández). Obesity (Chronic). Left shoulder pain (Chronic). Atypical chest pain (Acute). Status post left rotator cuff repair (Acute 02/03/20). Keratoacanthoma (Acute). Plantar fasciitis of right foot (Acute). Trochanteric bursitis, left hip (Acute). Colon polyp (Acute). Diverticulosis (Acute). Trigger thumb of right hand (Acute ~10/08/18). Condyloma acuminatum (Acute 09/08/16). 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 Subclinical hypothyroidism (Chronic 05/12/13). 2013. Other and unspecified hyperlipidemia (Chronic 04/10/11). est risk ~15% (2015 based on 2009 off med and BP 140). Essential (primary) hypertension (Chronic 07/14/14). Chronic rhinitis (Chronic 04/10/11). chronic citirizine rx. Abnormal fasting glucose (Chronic 12/26/16). Medical History . Allergic rhinitis. Hyperlipidemia. Hypertension. Jaw fracture. Osteoarthritis. Primary osteoarthritis of left hip (09/10/17). Right shoulder pain. Subclinical hypothyroidism. Surgical History . Appendectomy. Colonoscopy - IV Sedation. 2005-normal. H/O total hip arthroplasty. S/P colonoscopy. 10/04/18. S/P trigger finger release. Right thumb. Status post left hip replacement. L YEHUDA - anterior approach. DOS: 12/11/17. Dr. Brady. Tear of right rotator cuff (09/10/17). Status post repair on 03/26/2018. Vasectomy PREVIOUS FUNCTIONAL STATUS/SOCIAL/FAMILY SUPPORTS:: Man lives in [place], [place] with his Caron. ADVANCE DIRECTIVES:: none on file Has patient been provided with info about the portal/API?: Yes Did the patient sign up for the portal?: Yes (previously) CODE STATUS:: Full Code INSURANCE COVERAGE / FINANCIAL ISSUES:: [employer] Medicare Advantage PRIMARY CARE PHYSICIAN:: Nadir Rossi POTENTIAL DISCHARGE NEEDS:: Follow up with PCP and plan of care PATIENT/FAMILY EDUCATION NEEDS:: Review of discharge instructions, medications, limitations, activity, follow up plan and discuss [employer] TRANSPORTATION:: via private vehicle with family PLAN:: Man polo be discharged home with no new services. He will follow up with his community providers and plan of care and transport with family. CM will continue to provide support to Man and his discharge planning needs.
[2021-04-27] MEDS: Rosuvastatin 10 MG TAB PO (09:40)
[2021-04-27] MEDS: Multivitamin TAB 1 TAB PO (09:40)
[2021-04-27] MEDS: Aspirin 81 MG CHEW PO (09:40)
[2021-04-27] MEDS: Cetirizine 10 MG TAB PO (09:40)
[2021-04-27] MEDS: Normal Saline Flush 10 ML SYR IVP (09:41)
[2021-04-27] MEDS: hydroCHLOROthiazide 25 MG TAB PO (10:49)
--- NOTE | 2021-04-27 10:51 | W.PM.DS.N ---
Date of service: 04/27/21 Time of Service: 10:52 DS: Diagnosis Discharge Diagnosis (1) Atypical chest pain: Status: Acute (2) Left shoulder pain: Status: Chronic (3) Obesity: Status: Chronic Discharge Plan Disposition Patient Disposition: HOME Condition: Stable Discharge Details Reason For Visit: Atypcial Chest Pain Admit Date/Time: 04/26/21 18:06 Admit Provider: Asher Fernández Attending Provider: Asher Fernández Primary Care Provider: Nadir Rossi Hospital Course Hospital Course: This is a 66 year old male who presented to the ED with c/o left sided chest wall pain the posterior left shoulder pain. He reports that he has had chronic left shoulder pain for over a year since not completing rehab following a shoulder surgery. He reports that he was doing chicken wing exercises Sunday and reports pain came on after. He did decide to google his symptoms and was concerned about a possibility of pericarditis so notified his pcp office who referred him to the ED. He reports his pain as achy and was more constant, keeping him up at night Sunday. His work up in the ED showed no acute EKG changes and his troponin and serial troponin negative. He was referred to observation for a stress test that is not available here unfortunately. additional troponins remained negative and he was hemodyanmically stable with no events or changes on telemetry. He is pain free and stable for discharge to home for outpatient f/u and stress testing which I have ordered. discharge discussed with DR Austin Home Meds and New Rx's Prescriptions: New aspirin 81 mg Tablet,Chewable 81 mg PO DAILY Qty: 0 0RF Continued turmeric 400 mg capsule 500 mg PO BID 0RF hydrochlorothiazide 25 mg tablet 25 mg PO DAILY Qty: 90 3RF Rx Instructions: To keep blood pressure <140/80 levothyroxine 25 mcg tablet 25 mcg PO QHS Qty: 90 3RF Rx Instructions: to replace low thyroid function cetirizine 10 mg tablet,chewable 10 mg PO DAILY 0RF losartan 25 mg tablet 25 mg PO HS Qty: 90 3RF rosuvastatin 10 mg tablet 10 mg PO DAILY Qty: 90 3RF grape seed extract 50 mg tablet 300 mg PO DAILY 0RF multivitamin,tx-minerals Tablet 1 tab PO DAILY 0RF Discharge Instructions Instructions: Chest Pain (DC) Referrals: Nadir Rossi DO [Primary Care Provider] - Activity:: Activity as Tolerated Equipment/Supplies:: No Equipment Needed Diet:: As Tolerated Discharge Orders Other Ambulatory Orders: NM MPI rest & stress grp (Routine) Location: None Selected Ordered By: Gely Brasher DS: Summary Time Spent with Patient providing and/or coordinating discharge services: Less than 30 minutes Status at Discharge Functional status at discharge: independent ambulation Overall status at discharge: patient is back to baseline Mental Status: mental status grossly normal Speech and Movement: speech and movement normal Mood: congruent mood Affect: normal affect Exam Const General: cooperative, healthy appearing, comfortable and no acute distress Nutritional Appearance: obese Orientation: alert, awake and oriented x3 HENMT Head: normal to inspection, normocephalic and atraumatic Mouth: oral mucosae normal Chest Chest: normal inspection of the chest Resp Effort & Inspection: normal respiratory effort Auscultation: clear to auscultation bilaterally Cardio Rate: regular rate Rhythm: regular rhythm Heart Sounds: S1 normal, S2 normal and no murmurs GI Inspection: normal to inspection Palpation: soft Auscultation: normal bowel sounds Skin General skin exam: no rashes or lesions noted Neuro General: patient alert, patient awake, patient oriented x3 and no focal motor deficits Extrem General: normal to inspection, full ROM and no pedal edema Psych Appearance: grossly normal Mental Status: mental status grossly normal Speech and Movement: speech and movement normal Mood: congruent mood Affect: normal affect Attitude: cooperative Thought Process: normal Thought Content: normal Insight: insight good Judgment: judgment good DS: Data Vitals/I&O Vitals and I&O: Vital Signs Temperature 36.6 C 04/27/21 07:25 Temperature Source Tympanic 04/27/21 07:25 Pulse 53 L 04/27/21 07:30 Pulse Rhythm Regular 04/27/21 10:22 Pulse 45 L 04/26/21 18:20 Respiratory Rate 18 04/27/21 07:25 Respiratory Effort 04/27/21 10:22 Respiratory Depth Normal 04/27/21 10:22 Respiratory Pattern Normal 04/27/21 10:22 Blood Pressure 157/87 H 04/27/21 07:25 Blood Pressure Mean 84 04/26/21 18:16 Blood Pressure Position Sitting 04/26/21 13:56 Pulse Oximetry 97 04/27/21 07:25 Oxygen Delivery Method Room Air 04/27/21 07:25 Oxygen Flow Rate 0 03/09/22 07:25 Pain Level 0 04/27/21 07:25 Comment 04/26/21 23:00 Intake & Output 04/26/21 04/26/21 04/27/21 11:59 23:59 11:59 Intake Total 620 / 620 620 / 620 Balance 620 / 620 620 / 620 Weight 97.522 kg 104.4 kg Intake: IV Oral 600 / 600 600 / 600 Other: Urine Color Yellow Yellow Urine Appearance Clear Clear Urine Odor Normal Normal Comment pT stated that he has used the bathroom and did void. Voiding Methods Toilet Toilet Data Completed and Pending Labs on day of discharge: Labs from last 24 hours 04/27/21 04/27/21 04/27/21 05:30 05:30 05:30 WBC 7.70 RBC 4.38 Hgb 13.2 L Hct 38.9 L MCV 88.8 MCH 30.1 MCHC 33.9 RDW 12.1 Plt Count 183 MPV 9.6 Immature Gran % 0.3 Neutrophils % 56.7 Lymphocytes % 30.8 Monocytes % 9.1 Eosinophils % 2.5 Basophils % 0.6 Nucleated RBC % 0 Absolute Neutrophils 4.37 Absolute Lymphocytes 2.37 Absolute Monocytes 0.70 Absolute Eosinophils 0.19 Absolute Basophils 0.05 D-Dimer Sodium 146 H Potassium 3.8 Chloride 109 H Carbon Dioxide 27.5 Anion Gap 9.5 BUN 12 Creatinine 1.0 Estimated GFR/1.73 m2 >= 60.00 Glucose 112 H Calcium 8.5 Magnesium Total Bilirubin 0.4 AST 21 ALT 33 Alkaline Phosphatase 89 Troponin I NT-Pro-B Natriuret Pep Total Protein 6.8 Albumin 3.5 Triglycerides Total Cholesterol LDL Cholesterol, Calc HDL Cholesterol TSH COVID-19 Source SARS-CoV-2 (PCR) Add-On Test Request DONE 04/27/21 04/26/21 04/26/21 05:30 22:20 18:06 WBC RBC Hgb Hct MCV MCH MCHC RDW Plt Count MPV Immature Gran % Neutrophils % Lymphocytes % Monocytes % Eosinophils % Basophils % Nucleated RBC % Absolute Neutrophils Absolute Lymphocytes Absolute Monocytes Absolute Eosinophils Absolute Basophils D-Dimer Sodium Potassium Chloride Carbon Dioxide Anion Gap BUN Creatinine Estimated GFR/1.73 m2 Glucose Calcium Magnesium Total Bilirubin AST ALT Alkaline Phosphatase Troponin I < 50 < 50 NT-Pro-B Natriuret Pep Total Protein Albumin Triglycerides 137 Total Cholesterol 166 LDL Cholesterol, Calc 97 HDL Cholesterol 42 TSH COVID-19 Source Nasal/Nares SARS-CoV-2 (PCR) Negative Add-On Test Request 04/26/21 04/26/21 04/26/21 17:13 14:24 14:05 WBC 10.25 RBC 4.73 Hgb 14.2 Hct 41.3 MCV 87.3 MCH 30.0 MCHC 34.4 RDW 12.2 Plt Count 213 MPV 9.9 Immature Gran % 0.2 Neutrophils % 68.3 Lymphocytes % 22.8 Monocytes % 7.0 Eosinophils % 1.1 Basophils % 0.6 Nucleated RBC % 0 Absolute Neutrophils 7.00 H Absolute Lymphocytes 2.34 Absolute Monocytes 0.72 Absolute Eosinophils 0.11 Absolute Basophils 0.06 D-Dimer 343 Sodium Potassium Chloride Carbon Dioxide Anion Gap BUN Creatinine Estimated GFR/1.73 m2 Glucose Calcium Magnesium Total Bilirubin AST ALT Alkaline Phosphatase Troponin I < 50 NT-Pro-B Natriuret Pep Total Protein Albumin Triglycerides Total Cholesterol LDL Cholesterol, Calc HDL Cholesterol TSH COVID-19 Source SARS-CoV-2 (PCR) Add-On Test Request 04/26/21 14:05 WBC RBC Hgb Hct MCV MCH MCHC RDW Plt Count MPV Immature Gran % Neutrophils % Lymphocytes % Monocytes % Eosinophils % Basophils % Nucleated RBC % Absolute Neutrophils Absolute Lymphocytes Absolute Monocytes Absolute Eosinophils Absolute Basophils D-Dimer Sodium 139 Potassium 3.4 L Chloride 103 Carbon Dioxide 27.2 Anion Gap 8.8 BUN 12 Creatinine 1.0 Estimated GFR/1.73 m2 >= 60.00 Glucose 142 H Calcium 8.9 Magnesium 2.2 Total Bilirubin 0.5 AST 25 ALT 43 Alkaline Phosphatase 102 Troponin I < 50 NT-Pro-B Natriuret Pep 76 Total Protein 7.8 Albumin 4.1 Triglycerides Total Cholesterol LDL Cholesterol, Calc HDL Cholesterol TSH 2.00 COVID-19 Source SARS-CoV-2 (PCR) Add-On Test Request [facility] All Active Problems (Updated 04/27/21 @ 09:23 by HANANE Mcfadden) Obesity (Chronic) Left shoulder pain (Chronic) Atypical chest pain (Acute) Status post left rotator cuff repair (Acute 02/03/20) Keratoacanthoma (Acute) Plantar fasciitis of right foot (Acute) Trochanteric bursitis, left hip (Acute) Colon polyp (Acute) Diverticulosis (Acute) Trigger thumb of right hand (Acute ~10/08/18) Condyloma acuminatum (Acute 09/08/16) 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) Subclinical hypothyroidism (Chronic 05/12/13) 2014 Other and unspecified hyperlipidemia (Chronic 04/10/11) est risk ~15% (2014 based on 2009 off med and BP 140) Essential (primary) hypertension (Chronic 07/14/14) Chronic rhinitis (Chronic 04/10/11) chronic citirizine rx Abnormal fasting glucose (Chronic 12/26/16) Medical History Allergic rhinitis Hyperlipidemia Hypertension Jaw fracture Osteoarthritis Primary osteoarthritis of left hip (09/10/17) Right shoulder pain Subclinical hypothyroidism Surgical History Appendectomy Colonoscopy - IV Sedation 2005-normal H/O total hip arthroplasty S/P colonoscopy 10/04/18 S/P trigger finger release Right thumb Status post left hip replacement L YEHUDA - anterior approach DOS: 12/11/17 Dr. Brady Tear of right rotator cuff (09/10/17) Status post repair on 03/26/2018 Vasectomy Family History Mother Heart disease Hypertension Father Arthritis Sister Breast cancer Other Hyperlipidemia Obesity Social History Smoking/Tobacco Use Status: Never Second Hand Exposure: No Smoking risk assessment performed?: Yes Alcohol Intake: current Alcohol Intake frequency: 0-2 drinks per day Alcohol type: beer, wine and hard liquor Details: couple drinks/night Drug use: Never Substance use type: does not use Caregiver/Support person: No Household members: spouse Number of Children: 2 Communication Needs: None 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 Pets and animals: Yes Pets and animals: cat(s) Sexually active: Yes Do you think of yourself as: straight/heterosexual Current gender identity: male What is your relationship status?: How often do you talk on the phone with friends or family?: decline to answer How often do you get together with friends or relatives?: decline to answer Do you belong to any clubs or organized social groups?: no Panel score (0-1 are the most socially isolated patients): 1 What type of physical activity do you participate in: walking, bicycling and other Details: kayaking Duration: 30-45 minutes/day Frequency: daily Seatbelt use: always Helmet use: No Drive intox or ride w/intox bus van driver: No Water heater temp set <120 deg: Yes Working smoke detector in home: Yes Fire extinguisher in home: Yes Carbon monox detector in home: Yes Firearms in home: No Do you feel safe at home: Yes Do you feel safe in your relationship?: Yes
[2021-04-27 11:05] VITALS: BP 128/68; PULSE 46; RESP 18; TEMP 36.6; O2SAT 96
[2021-04-27 12:00] VITALS: PULSE 53
== END 2021-04-27 12:10 | disposition home or self-care (01) ==
LOC: ER 18:09 → MS 04-27 09:23
PROVIDERS: Internal Medicine; Physician Assistant; Admitting Provider Family Medicine; Emergency Provider Registered Nurse Emergency; PCP Family Medicine; Visit Provider Family Medicine
DX: R07.89 Other chest pain (principal); M25.512 Pain in left shoulder; E66.9 Obesity, unspecified; Z20.822 Contact with and (suspected) exposure to COVID-19; J30.9 Allergic rhinitis, unspecified; E78.5 Hyperlipidemia, unspecified; I10 Essential (primary) hypertension; E03.9 Hypothyroidism, unspecified; Z68.34 Body mass index [BMI] 34.0-34.9, adult
CPT/HCPCS: 36415; 80053; 80061; 87635; 93005; 99285; U0005; 71045; 83735; 83880; 84443; 84484; 85025; 85379; 93010; 93306; 99217; 99220; G0378

== ENCOUNTER → 2021-05-17 00:46 | Outpatient (CLI) | payer MEDICARE, SELFPAY ==
--- NOTE | 2021-05-17 07:00 | DI.NM_ITS ---
APPROVED REPORT Exam: Exercise Treadmill Patient Location: Out-Patient Room/Bed: Stress Nurse: Caroline Doyle RN Ordering Provider:JULIANNE NOONAN, Contact Number: BMI: 33.96 Baseline Rhythm: Sinus Bradycardia Indications: LEFT SIDED ATYPICAL CHEST PAIN. Medical History Medical History: HTN, HLD, Osteoarthritis Cardiac Medications: Rosuvastatin, Nitroglycerin SL, Losartan, Hydrochlorothiazide Allergies: No known drug allergies Cardiac Risk Factors: HTN, Hyperlipidemia, FHX of CAD, Obesity Previous Cardiac Procedures: None Pretest Chest Pain Characteristics: No chest pain Exercise History: Indeterminate Physical Disabilities: None Lung Sounds: Clear to auscultation Heart Sounds: Regular Stress Test Details Test: Exercise stress testing was performed using a Wes protocol. Nuclear Acquisition: Rest Tc-99m/Stress Tc-99m 1 day Rest Isotope: Tc-99m Sestamibi. Dose: 12.0 Date: 05/17/2021 Injection Time: 0835 Stress Isotope: Tc-99m Sestamibi. Dose: 37.0 Date: 05/17/2021 Injection Time: 1029 HR Resting HR Supine: 46 bpm Max Heart Rate (APMHR): 152.405259 bpm Resting HR Standin bpm Target HR (85% APMHR): 129.165694 bpm Max HR Achieved: 136 bpm % of APMHR: 89.47 Recovery HR: 74 bpm HR response to stress: Normal HR response to stress BP Resting BP Supine: 168/80 mmHg Resting BP Standin/72 mmHg Max BP: 210/70 mmHg Recovery BP: 152/72 mmHg BP response to stress: Normal blood pressure response to stress. Comment: Hypertensive at baseline. Patient did not take BP medications this morning. ECG Resting ECG: Sinus Bradycardia Ectopy: None Stress ECG: Sinus Tachycardia, , Clear, Sinus Rhythm, Sinus Bradycardia ST Change: Horizontal/Downsloping ST depression Lead(s): inferolateral leads Stage: [address] Deviation: 2.5 mm Arrhythmia: Multifocal PVCs, couplets, intermittent bigeminy Recovery ECG: Sinus Rhythm Recovery ST Change: Upsloping ST depression transitioning to downsloping ST depression over time. Lead(s): inferior leads Recovery ST Deviation: 3 mm Recovery Arrhythmia: PVCs, occasional PAC Clinical Reason for Termination: Fatigue, Dyspnea Stress Symptoms: Dyspnea, General Fatigue Exercise duration: 07 min57 sec Highest Stage Reached: Stage 3: 3.4 mph at 14% grade. Exercise capacity: 10.07 METs Beaulieu Treadmill Score: -7 Rate Pressure Product: [id number] Stress ECG Conclusion 1. Resting electrocardiogram showed minor ST T abnormalities 2. Patient exercised on the Wes protocol and completed a workload of 10.07 METS, stopping due to fa tigue 3. Normal heart rate and blood pressure response to exercise. Patient achieved 89% of predicted hear t rate for age 4. At peak exercise the test electrocardiographically was consistent with myocardial ischemia, though somewhat confounded by artifact 5. PVCs were seen 6. See MPI report Beaulieu Treadmill Score is -7 which is Moderate risk. Stress Test Summary STAGE Time (mins) Speed (mph) Grade (%) HR BP SYMPTOMS METS Supine 46 168/80 Standing 48 174/72 SpO2 96% 1 3 1.7 10 101 170/68 4.6 2 6 2.5 12 128 SpO2 94% 7 1 min recovery 111 208/78 SpO2 96% 3 min recovery 85 210/70 6 min recovery 76 190/70 9 min recovery 74 152/72 MPI Conclusion Normal myocardial perfusion without evidence of ischemia or prior infarction EF 47%, normal wall motion Radiologist Interpretation Radiologist agrees with Turret Lathe Operator's Interpretation. Radiologist Interpretation by: John Hoskins MD Interpretation Date/Time: 05/17/2021 17:00:21
== END ==
PROVIDERS: PCP Family Medicine; Visit Provider Nurse Practitioner Acute Care
DX: R07.89 Other chest pain (principal)
CPT/HCPCS: 93016; 93018; 78452; 93017

== ENCOUNTER 2021-08-15 08:31 | Outpatient (CLI) | payer MEDICARE, SELFPAY ==
--- NOTE | 2021-08-15 08:30 | RT.EKG_ITS ---
APPROVED REPORT Exam: Resting ECG Reason for Exam: CP Patient Location: O HR:44 bpm ECG Measurements Heart Rate 44 AXIS OR 172 P 55 QRSd 99 QRS 47 QT 479 T 35 QTc 410 Conclusion Sinus bradycardia...rate< 50
== END 2021-08-15 08:32 | disposition home or self-care (01) ==
PROVIDERS: PCP Family Medicine; Visit Provider Internal Medicine Cardiovascular Disease
DX: R07.9 Chest pain, unspecified; R94.31 Abnormal electrocardiogram [ECG] [EKG]; R00.1 Bradycardia, unspecified
CPT/HCPCS: 93010

== ENCOUNTER → 2021-08-15 13:21 | Outpatient (BNVA) | payer MEDICARE, SELFPAY | PROVIDERS: PCP Family Medicine; Referring Provider Family Medicine; Visit Provider Internal Medicine Cardiovascular Disease | DX: R07.9 Chest pain, unspecified (principal); Z98.890 Other specified postprocedural states | CPT/HCPCS: 93005; 99203; 99214 ==

== ENCOUNTER 2024-05-15 02:42 | Outpatient (CLI) | payer MEDICARE, SELFPAY ==
[2024-05-15 09:51] LABS: ALT 42 U/L (16-63); AST 28 U/L (15-37); Albumin 3.9 g/dL (3.4-5.0); Alkaline Phosphatase 84 U/L (46-116); Anion Gap 12.8 mmol/L (3-11); BUN 15 mg/dL (7-18); Bilirubin, Total 0.5 mg/dL (0.2-1.0); CO2 25.2 mmol/L (21.0-32.0); Calcium 8.9 mg/dL (8.5-10.1); Chloride 104 mmol/L (98-107); Estimated GFR 80.47 (mL/min/1.73m2); Glucose 112 mg/dL (74-106); Potassium 3.7 mmol/L (3.5-5.1); Sodium 142 mmol/L (136-145); TSH (W/Ref FT4) 4.05 uIU/mL (0.36-3.74); Total Protein 7.2 g/dL (6.4-8.2)
[2024-05-15 13:07] LABS: FREE T4 0.88 ng/dL (0.76-1.46)
== END 2024-05-15 02:43 | disposition home or self-care (01) ==
PROVIDERS: PCP Family Medicine; Visit Provider Family Medicine
DX: I10 Essential (primary) hypertension (principal); E03.9 Hypothyroidism, unspecified
CPT/HCPCS: 36415; 80053; 84439; 84443